=== PATIENT | male | born 1955 | race Caucasian/White ===

== ENCOUNTER 2018-03-11 07:46 | Inpatient (IN) ==
[2018-03-11] MEDS ORDERED: LORazepam 1 MG Tablet PO STA (08:14)
--- NOTE | 2018-03-11 08:19 | ED ---
HPI General Chief complaint: Neuro Symptoms/Deficit Stated complaint: Right Hand/Left Eye/Headache Complaint Time Seen by Provider: 03/11/18 08:01 History of Present Illness HPI narrative: 62 male history of anxiety here for evaluation of right hand numbness. Patient woke up this morning around 5:00 went to smoke a cigarette outside he noticed that his right hand is weak and could not fully grasp of the cigarette, he got anxious, almost an hour later the weakness gone away but he still have right hand numbness. He states that he had the same exact thing happened to him once last week when he was at work. 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 Denies hypertension or diabetes. Side Note: Patient has been having left eye complaints for the last 4 weeks including meng curtain that turned into seeing flashes of light, he states that he has been seeing an fuse cutter who did a proper eye exam and ruled out retinal detachment and other pathology and he is currently taking p.o. Medrol pack and steroids eyedrops. He also has been having headache/pain behind his left eye for the last 2 weeks on and off that has not changed by the patient current symptoms. Related Data Home Medications Medication Instructions Recorded Confirmed methylprednisolone 4 mg PO TID 03/11/18 03/11/18 prednisolone acetate 1 drp LEFT EYE Q6H 03/11/18 03/11/18 Allergies Allergy/AdvReac Type Severity Reaction Status Date / Time No Known Allergies Allergy Verified 03/11/18 07:58 Review of Systems ROS: all other systems reviewed are negative [facility] Medical History Medical History Patient denies medical problems (Acute) Surgical History Surgical History No history of previous surgery (Acute) Social History Social History Substance History: No History of Abuse Second Hand Smoke Exposure: No Smoking Status: Current every day smoker Tobacco Type: Cigarettes How Often Do You Have a Drink Containing Alcohol: 2 to 4 times a month Recent Travel in [facility] within the Last 8 Weeks: No Recent Out of Country Travel within the Last 8 Weeks: No Immunization History Tetanus Immunization: >5 Years Exam Narrative Exam Narrative: GENERAL: Alert oriented x3 no acute distress. SKIN: Focused skin assessment warm/dry. HEAD: Atraumatic. Normocephalic. EYES: Pupils equal and round. No scleral icterus. No injection or drainage. ENT: No nasal bleeding or discharge. Mucous membranes pink and moist. NECK: Trachea midline. No JVD. CARDIOVASCULAR: Regular rate and rhythm. No murmur appreciated. RESPIRATORY: No accessory muscle use. Clear to auscultation. Breath sounds equal bilaterally. GASTROINTESTINAL: Abdomen soft, non-tender, nondistended. Hepatic and splenic margins not palpable. MUSCULOSKELETAL: No obvious deformities. No clubbing. No cyanosis. No edema. NEUROLOGICAL: Awake and alert. No obvious cranial nerve deficits. Motor grossly within normal limits. Normal speech. PSYCHIATRIC: Appropriate mood and affect; insight and judgment normal. Course Initial Documented Vital Signs Temperature 97.4 F L 03/11/18 07:55 Pulse Rate 73 03/11/18 07:55 Respiratory Rate 20 03/11/18 07:55 Blood Pressure 143/83 H 03/11/18 07:55 Pulse Oximetry 100 03/11/18 07:55 Last Documented Vital Signs Temperature 97.4 F L 03/11/18 07:55 Pulse Rate 70 03/11/18 09:15 Respiratory Rate 17 03/11/18 09:15 Blood Pressure 144/91 H 03/11/18 09:15 Pulse Oximetry 98 03/11/18 09:15 NIH Stroke Scale NIHSS Time Completed NIHSS Time Completed: 08:09 NIH Stroke Scale Level of Consciousness: 0-Alert Orientation Questions: 0-Answers both correct Responds to Commands: 0-Both tasks correct Gaze Eye Movement: 0-Horizontal movement WNL Visual Chaudhari: 0-No visual field defect Facial Movement: 0-Normal Motor Functions Arm LEFT: 0-No drift Motor Functions Arm RIGHT: 0-No drift Motor Functions Leg LEFT: 0-No drift Motor Functions Leg RIGHT: 0-No drift Limb Ataxia: 0-No ataxia Sensory Loss: 0-No sensory loss Best Language: 0-Normal Articulation: 0-Normal Extinction or Inattention Sensory: 0-Absent Total: 0 Medical Decision Making MDM Narrative Medical decision making narrative: 62 male here for right hand numbness but no weakness. Symptoms happened about a week ago they got better and then occurred again today, CT showed an area of low density in the left parietal lobe that was followed by MRI of the brain that showed subacute strokes in the left hemisphere. Labs are reasonably within normal limit, vitals are stable except for mildly elevated blood pressure. EKG no A.fib, NSR. Patient will need to be admitted for further evaluation with possible carotid doppler and/or echo to r/ o embolic stroke. Medical Screen Exam Complete: Yes Emergency Medical Condition: Yes Lab Data Result diagrams: 03/11/18 08:00 03/11/18 08:00 Lab Results 03/11/18 03/11/18 03/11/18 Range/Units 08:00 08:00 08:00 WBC 6.2 (4.0-11.0) th/mm3 RBC 5.29 (4.50-5.90) mil/mm3 Hgb 16.6 (13.0-17.0) gm/dL Hct 49.8 (39.0-51.0) % MCV 94.2 (80.0-100.0) fL MCH 31.3 (27.0-34.0) pg MCHC 33.3 (32.0-36.0) % RDW 13.7 (11.6-17.2) % Plt Count 201 (150-450) th/mm3 MPV 8.3 (7.0-11.0) fL Neut % (Auto) 69.3 (16.0-70.0) % Lymph % (Auto) 18.9 (9.0-44.0) % Bladen % (Auto) 10.0 H (0.0-8.0) % Eos % (Auto) 1.1 (0.0-4.0) % Baso % (Auto) 0.7 (0.0-2.0) % Neut # (Auto) 4.3 (1.8-7.7) th/mm3 Lymph # (Auto) 1.2 (1.0-4.8) th/mm3 Bladen # (Auto) 0.6 (0.0-0.9) th/mm3 Eos # (Auto) 0.1 (0.0-0.4) th/mm3 Baso # (Auto) 0.0 (0.0-0.2) th/mm3 WBC Differential . Differential Comment Auto diff final PT 10.0 (9.8-11.6) sec INR 1.0 Ratio APTT 24.6 (24.3-30.1) sec Sodium 139 (136-145) meq/L Potassium 4.5 (3.5-5.1) meq/L Chloride 110 H (98-107) meq/L Carbon Dioxide 23.8 (21.0-32.0) meq/L Anion Gap 5 (5-15) meq/L BUN 20 H (7-18) mg/dL Creatinine 1.19 (0.60-1.30) mg/dL Estimated GFR 62 L (>89) mL/min Random Glucose 103 (74-106) mg/dL Calcium 8.7 (8.5-10.1) mg/dL Total Bilirubin 0.7 (0.2-1.0) mg/dL AST 13 L (15-37) U/L ALT 24 (12-78) U/L Alkaline Phosphatase 81 (45-117) U/L Total Creatine Kinase 119 (39-308) U/L CK-MB (CK-2) 2.9 (0.5-3.6) ng/mL Troponin I Less than 0.02 L (0.02-0.05) ng/mL Total Protein 7.5 (6.4-8.2) g/dL Albumin 4.1 (3.4-5.0) g/dL Imaging Data Radiologist's impression: Chest X-Ray 03/11/18 08:12 CONCLUSION: Negative examination. Head CT 03/11/18 08:12 CONCLUSION: 1. Area of abnormal density involving the left parietal lobe. Differential diagnostic considerations would include infarction versus mass. MRI of the brain with gadolinium is suggested to further assess . Head MRI 03/11/18 08:49 CONCLUSION: Patchy evolving subacute strokes in the left hemisphere as described. Discharge Plan Physicians Team ED Provider: Melvin Pisano Primary Care Provider: UNKNOWN, Rxs /Orders / Referrals /Forms Prescriptions: No Action methylprednisolone 4 mg Tablet 4 mg PO TID RF: 0 prednisolone acetate 1 % Drops,Suspension 1 drp LEFT EYE Q6H RF: 0 Status ED Status: With Doctor
--- NOTE | 2018-03-11 08:41 | CT ---
EXAM DATE: 03/11/2018 8:26 AM EDT AGE/SEX: 62 years / Male INDICATIONS: Numbness in right arm. Headache and vision changes for four weeks. CLINICAL DATA: This is the patient's initial encounter. Patient reports that signs and symptoms have been present for 1 month and indicates a pain score of 5/10. MEDICAL/SURGICAL HISTORY: None. None. RADIATION DOSE: 37.81 CTDI (mGy) COMPARISON: No prior exams available for comparison. TECHNIQUE: CT of the head without contrast. Using automated exposure control and adjustment of the mA and/or kV according to patient size, radiation dose was kept as low as reasonably achievable to ob tain optimal diagnostic quality images. DICOM format image data is available electronically for revi ew and comparison. FINDINGS: Cerebrum: There is a vague area of decreased density measuring 1.5 cm in diameter involving the left parietal lobe. This involves the cortex and underlying cortical white matter. It is fairly smoothly marginated. The ventricles are normal for age. No evidence of midline shift or hemorrhage . No extr aaxial fluid collections are seen. Posterior Fossa: The cerebellum and brainstem are intact. The 4th ventricle is midline. The cerebe llopontine angle is unremarkable. Extracranial: The visualized portion of the orbits is intact. Skull: The calvaria is intact. No evidence of skull fracture. CONCLUSION: 1. Area of abnormal density involving the left parietal lobe. Differential diagnostic considerati ons would include infarction versus mass. MRI of the brain with gadolinium is suggested to further as sess . Electronically signed by: Lul Ceja MD 03/11/2018 8:40 AM EDT
--- NOTE | 2018-03-11 08:42 | XR ---
EXAM DATE: 03/11/2018 8:12 AM EDT AGE/SEX: 62 years / Male INDICATIONS: Headache and neurological symptoms, patient states no chest complaints. CLINICAL DATA: This is the patient's initial encounter. Patient reports that signs and symptoms have been present for 1 day and indicates a pain score of Nonresponsive. MEDICAL/SURGICAL HISTORY: None. None. COMPARISON: No prior exams available for comparison. FINDINGS: 2 portable frontal views of the chest demonstrate the lungs to be symmetrically aerated without evide nce of mass, infiltrate or effusion. The cardiomediastinal contours are unremarkable. Osseous struc tures are intact. CONCLUSION: Negative examination. Electronically signed by: Lul Ceja MD 03/11/2018 8:41 AM EDT
[2018-03-11 09:07] LABS: Baso % (Auto) 0.7 % (0.0-2.0); Eos # (Auto) 0.1 th/mm3 (0.0-0.4); Eos % (Auto) 1.1 % (0.0-4.0); Hematocrit 49.8 % (39.0-51.0); Hemoglobin 16.6 gm/dL (13.0-17.0); Lymph # (Auto) 1.2 th/mm3 (1.0-4.8); Lymph % (Auto) 18.9 % (9.0-44.0); Mean Corpuscular HGB Conc 33.3 % (32.0-36.0); Mean Corpuscular Hemoglobin 31.3 pg (27.0-34.0); Mean Corpuscular Volume 94.2 fL (80.0-100.0); Mean Platelet Volume 8.3 fL (7.0-11.0); Mono # (Auto) 0.6 th/mm3 (0.0-0.9); Neut # (Auto) 4.3 th/mm3 (1.8-7.7); Neut % (Auto) 69.3 % (16.0-70.0); Platelet Count 201 th/mm3 (150-450); Red Blood Count 5.29 mil/mm3 (4.50-5.90); Red Cell Distribution Width 13.7 % (11.6-17.2); White Blood Count 6.2 th/mm3 (4.0-11.0)
[2018-03-11 09:15] LABS: Activated Partial Thrombo Time 24.6 sec (24.3-30.1)
[2018-03-11 09:24] LABS: Albumin 4.1 g/dL (3.4-5.0); Anion Gap 5 meq/L (5-15); Aspartate Aminotransferase 13 U/L (15-37); Blood Urea Nitrogen 20 mg/dL (7-18); Calcium 8.7 mg/dL (8.5-10.1); Carbon Dioxide 23.8 meq/L (21.0-32.0); Chloride 110 meq/L (98-107); Glomerular Filtration Rate 62 mL/min (>89); Glucose,Random 103 mg/dL (74-106); Potassium 4.5 meq/L (3.5-5.1); Sodium 139 meq/L (136-145)
[2018-03-11 09:26] LABS: Alanine Aminotransferase 24 U/L (12-78)
[2018-03-11 09:29] LABS: Alkaline Phosphatase 81 U/L (45-117); Creatine Kinase 119 U/L (39-308); Total Protein 7.5 g/dL (6.4-8.2)
[2018-03-11 09:41] LABS: Creatine Kinase MB 2.9 ng/mL (0.5-3.6)
[2018-03-11] MEDS ORDERED: Gadobutrol PF 7.5 MMOL/7.5 ML Vial (for RAD) IV.SIG ONE (10:17)
--- NOTE | 2018-03-11 10:27 | MR ---
EXAM DATE: 03/11/2018 9:58 AM EDT AGE/SEX: 62 years / Male INDICATIONS: . Abnormal CT with right arm weakness and cephalgia. CLINICAL DATA: This is the patient's initial encounter. Patient reports that signs and symptoms have been present for 3 weeks and indicates a pain score of 3/10. MEDICAL/SURGICAL HISTORY: None. . lip surgery COMPARISON: [facility] [place]/O CONTRAST, 03/11/2018. . TECHNIQUE: Multiplanar, multisequence examination of the brain was performed without and with 7 ml Ga davist (gadobutrol) contrast as a single exam dose. FINDINGS: Examination reveals a small focus of restricted diffusion in the low convexity left parietal occipita l cortex with scattered punctate areas of focally restricted diffusion elsewhere in the left hemisphe re, mid and high convexity frontal and parietal regions, these areas consistent with subacute strokes . There are no similar abnormalities in the contralateral right hemisphere. The posterior fossa and b rainstem structures are nonacute in appearance. There is no evidence of intracranial mass or hemorrha ge. There is mild T2 prolongation correlating with the above-described areas. Elsewhere, no suspiciou s abnormal parenchymal signal. Ventricles are symmetric and normal. CONCLUSION: Patchy evolving subacute strokes in the left hemisphere as described. Electronically signed by: Abran Edwards MD 03/11/2018 10:26 AM EDT
[2018-03-11] MEDS ORDERED: Bisacodyl 10 MG Supp RECTAL PRN (12:23)
--- NOTE | 2018-03-11 12:35 | P.HPIM ---
History of Present Illness Service: [facility] Primary Care Physician: UNKNOWN Chief Complaint: r hand numbness History of Present Illness: This is a 62 y/o CM with PMHx Anxiety here for evaluation of right hand numbness that began at 5AM today. Symptoms were associated with weakness,, and patient reports having a similar episode that occurred at work last week that lasted a few minutes and completely resolved spontaneously. Patient is a smoker , he admits that he does not see a PCP regularly, but does deny previous history of diabetes and hypertension. No previous history of CVA, OH or CAD. Of note, patient intermittent left eye blurriness s/p echo vascular tech evaluation last wk who ruled out retinal detachment and other pathologies, patient was Rx Medrol pack and steroids eyedrops. - Diagnosis (1) Acute ischemic left MCA stroke (2) Tobacco use (3) ESTELA (acute kidney injury) (4) HTN (hypertension) Review of Systems All other systems reviewed negative except as stated in HPI PMFSH - History History Provided By: Patient - Medical History Medical History: Medical History (Last Updated 03/11/18 @ 13:23 by Safia Chaudhary MD) Anxiety Patient denies medical problems - Surgical History Surgical History: Surgical History (Last Reviewed 03/11/18 @ 13:23 by Safia Chaudhary MD) No history of previous surgery - Family History Family History: Family History (Last Updated 03/11/18 @ 13:24 by Safia Chaudhary MD) Other Family history normal - Social History I have reviewed the patient's Social History: Yes - Tobacco History Second Hand Smoke Exposure: Yes Tobacco Use In Past 30 Days: Yes Smoking Status: Current every day smoker Tobacco Type: Cigarettes Packs Per Day: 1 - Alcohol History How Often Do You Have a Drink Containing Alcohol: 2 to 4 times a month - Substance Use History Substance History: No History of Abuse - Travel History Recent Travel in the [place] Within the Last 8 Weeks: No Recent Travel Out of the Country Within the Last 8 Weeks: No - Immunization History Tetanus Immunization: >5 Years Medications and Allergies Allergies Allergy/AdvReac Type Severity Reaction Status Date / Time No Known Allergies Allergy Verified 03/11/18 07:58 Home Medications Medication Instructions Recorded Confirmed Type methylprednisolone 4 mg PO TID 03/11/18 03/11/18 History prednisolone acetate 1 drp LEFT EYE Q6H 10/19/18 10/19/18 History Exam Vital signs: Vital Signs 03/11/18 07:55 03/11/18 08:07 03/11/18 08:20 Temperature 97.4 F L Pulse Rate 73 73 62 Respiratory Rate 20 20 Blood Pressure 143/83 H 150/89 H Pulse Oximetry 100 100 03/11/18 09:15 Temperature Pulse Rate 70 Respiratory Rate 17 Blood Pressure 144/91 H Pulse Oximetry 98 Intake & Output 03/10/18 03/11/18 03/11/18 18:59 06:59 18:59 Weight 62.596 kg Narrative: GENERAL: Thin male, in no acute distress, lying comfortably in bed SKIN: Warm and dry. HEENT: Normocephalic. No scleral icterus. No injection or drainage. PERRLA, MOM. NECK: Supple, trachea midline. No JVD or lymphadenopathy. CARDIOVASCULAR: Regular rate and rhythm without murmurs, gallops, or rubs. RESPIRATORY: Breath sounds equal bilaterally. No accessory muscle use. GASTROINTESTINAL: Abdomen soft, non-tender, nondistended. MUSCULOSKELETAL: No cyanosis, or edema. BACK: Nontender without obvious deformity. No CVA tenderness. NEURO/PSYCH: AAOX3, RUE 4/5, all other extremities 5/5, clear speech, pleasant, CN 2-12 intact. Results - Labs CBC & Chem 7: 03/11/18 08:00 03/11/18 08:00 Labs: Short CBC 03/11/18 Range/Units 08:00 WBC 6.2 (4.0-11.0) th/mm3 Hgb 16.6 (13.0-17.0) gm/dL Hct 49.8 (39.0-51.0) % Plt Count 201 (150-450) th/mm3 BMP 03/11/18 08:00 Sodium 139 Potassium 4.5 Chloride 110 H Carbon Dioxide 23.8 BUN 20 H Creatinine 1.19 Calcium 8.7 Cardiac Enzymes 03/11/18 Range/Units 08:00 Total Creatine Kinase 119 (39-308) U/L CK-MB (CK-2) 2.9 (0.5-3.6) ng/mL Troponin I Less than 0.02 L (0.02-0.05) ng/mL Liver Function 03/11/18 Range/Units 08:00 Total Bilirubin 0.7 (0.2-1.0) mg/dL AST 13 L (15-37) U/L ALT 24 (12-78) U/L Alkaline Phosphatase 81 (45-117) U/L Albumin 4.1 (3.4-5.0) g/dL - Imaging Impressions Chest X-Ray 03/11/18 08:12 CONCLUSION: Negative examination. Head CT 03/11/18 08:12 CONCLUSION: 1. Area of abnormal density involving the left parietal lobe. Differential diagnostic considerations would include infarction versus mass. MRI of the brain with gadolinium is suggested to further assess . Head MRI 03/11/18 08:49 CONCLUSION: Patchy evolving subacute strokes in the left hemisphere as described. Caprini VTE Risk Assessment Caprini VTE Risk Assessment: No/Low Risk (score <= 1) Caprini Risk Assessment Model: Point Value = 1 Point Value = 2 Point Value = 3 Point Value = 5 Age 41-60 Minor surgery BMI > 25 kg/m2 Swollen legs Varicose veins or History of unexplained or recurrent spontaneous Oral contraceptives or hormone replacement Sepsis (< 1 month) Serious lung disease, including pneumonia (< 1 month) Abnormal pulmonary function Acute myocardial infarction Congestive heart failure (< 1 month) History of inflammatory bowel disease Medical patient at bed rest Age 61-74 Arthroscopic surgery Major open surgery (> 45 min) Laparoscopic surgery (> 45 min) Malignancy Confined to bed (> 72 hours) Immobilizing plaster cast Central venous access Age >= 75 History of VTE Family history of VTE Factor V Leiden Prothrombin [id number] Lupus anticoagulant Anticardiolipin antibodies Elevated serum homocysteine Heparin-induced thrombocytopenia Other congenital or acquired thrombophilia Stroke (< 1 month) Elective arthroplasty Hip, pelvis, or leg fracture Acute spinal cord injury (< 1 month) Prophylaxis Regimen: Total Risk Factor Score Risk Level Prophylaxis Regimen 0-1 Low Early ambulation 2 Moderate Order ONE of the following: *Sequential Compression Device (SCD) *Heparin 5000 units SQ BID 3-4 Higher Order ONE of the following medications: *Heparin 5000 units SQ TID *Enoxaparin/Lovenox 40 mg SQ daily (WT < 150 kg, CrCl > 30 mL/min) *Enoxaparin/Lovenox 30 mg SQ daily (WT < 150 kg, CrCl > 10-29 mL/min) *Enoxaparin/Lovenox 30 mg SQ BID (WT < 150 kg, CrCl > 30 mL/min) AND/OR *Sequential Compression Device (SCD) 5 or more Highest Order ONE of the following medications: *Heparin 5000 units SQ TID (Preferred with Epidurals) *Enoxaparin/Lovenox 40 mg SQ daily (WT < 150 kg, CrCl > 30 mL/min) *Enoxaparin/Lovenox 30 mg SQ daily (WT < 150 kg, CrCl > 10-29 mL/min) *Enoxaparin/Lovenox 30 mg SQ BID (WT < 150 kg, CrCl > 30 mL/min) AND *Sequential Compression Device (SCD) Assessment and Plan - Assessment (1) Acute ischemic left MCA stroke Code(s): I63.512 - Cerebral infarction due to unspecified occlusion or stenosis of left middle cerebral artery Status: Acute (2) Tobacco use Code(s): Z72.0 - Tobacco use Status: Chronic (3) ESTELA (acute kidney injury) Code(s): N17.9 - Acute kidney failure, unspecified Status: Acute (4) HTN (hypertension) Code(s): I10 - Essential (primary) hypertension Status: Acute - Plan This is a 62 y/o CM with PMHx Anxiety here for evaluation of right hand numbness that began at 5AM today. Per CT Head and MRI found to have patchy evolving subacute strokes in the left hemisphere, neurology has been consulted, hospital day #1 1. CVA/TIA, subacute strokes in the left hemisphere Admit to Telemetry Started on ASA and statin Will get Carotids and Echo Neurology consult placed, appreciate assistance with mgmt Allow permissive hypertension, not on meds at this time for hypertension Will check Lipid panel PT/OT/Speech consulted MRI HEAD: Patchy evolving subacute strokes in the left hemisphere as described. CT HEAD: Area of abnormal density involving the left parietal lobe. Differential diagnostic considerations would include infarction versus mass. MRI of the brain with gadolinium is suggested to further assess 2. Smoker Encourage cessation, risks discussed 3. HTN No previous history per patient Will allow permissive hypertension due to recent CVA Continue to monitor Not on PRN meds 4. Acute Kidney Injury BUN 20, Creatinine 1.19 Continue IV fluids Follow-up BMP in AM Avoid nephrotoxic meds 5. Anxiety Not on meds 6. DVT prophylaxis SCD's 7. Health Maintenance Will check lipids, hemoglobin A1c, and TSH 8. Dispo: Follow-up neurology recommendations as well as carotid and echo results Code Status: full Discussed Condition With: patient, RN
--- NOTE | 2018-03-11 13:02 | P.CONNEU ---
History of Present Illness Service: Neurology Primary Care Provider: UNKNOWN Chief Complaint: Stroke History of Present Illness: 62-year-old male admitted for stroke evaluation. Onset over the past couple weeks. Is been having double vision, left amaurosis fugax, dystaxia of his right upper extremity moments where he is unable to use his right arm or can control it. He smokes close to a pack a day's been doing it for decades. Does not take any medications. He is from [place] came here for further evaluation. Not IV TPA candidate due to the chronicity of his symptoms. Review of Systems All other systems reviewed negative except as stated in [facility] - History History Provided By: Patient - Medical History Medical History: Medical History (Last Reviewed 03/11/18 @ 12:53 by Juan Diego Driscoll) Patient denies medical problems - Surgical History Surgical History: Surgical History (Last Reviewed 03/11/18 @ 12:53 by Juan Diego Driscoll) No history of previous surgery - Tobacco History Second Hand Smoke Exposure: No Tobacco Use In Past 30 Days: Yes Smoking Status: Current every day smoker Tobacco Type: Cigarettes - Alcohol History How Often Do You Have a Drink Containing Alcohol: 2 to 4 times a month - Substance Use History Substance History: No History of Abuse - Travel History Recent Travel in the [place] Within the Last 8 Weeks: No Recent Travel Out of the Country Within the Last 8 Weeks: No - Immunization History Tetanus Immunization: >5 Years Medications and Allergies Active Medications: Active Medications Acetaminophen (Tylenol) 650 mg PO Q4H PRN PRN Reason: Temp > 100.4 Al Hydroxide/Mg Hydroxide (Milk Of Magnesia Liq) 30 ml PO Q12H PRN PRN Reason: Mild Constipation Bisacodyl (Dulcolax Supp) 10 mg RECTAL DAILY PRN PRN Reason: SEVERE CONSITIPATION Sodium Chloride (Ns Inj) 1,000 mls @ 125 mls/hr IV.CONT .Q8H EMILEE Lactulose (Lactulose Liq) 30 ml PO DAILY PRN PRN Reason: SEVERE CONSITIPATION Ondansetron HCl (Zofran Inj) 4 mg IV.PUSH Q6H PRN PRN Reason: NAUSEA OR VOMITING Pravastatin Sodium (Pravachol) 20 mg PO DAILY EMILEE Prednisolone Acetate (Pred Forte 1% Opth Susp) drop LEFT EYE Q6H EMILEE Senna/Docusate Sodium (Chasity-Colace) 1 tab PO BID EMILEE Sennosides (Senokot) 17.2 mg PO Q12H PRN PRN Reason: Moderate Constipation Allergies Allergy/AdvReac Type Severity Reaction Status Date / Time No Known Allergies Allergy Verified 03/11/18 07:58 Home Medications Medication Instructions Recorded Confirmed Type methylprednisolone 4 mg PO TID 03/11/18 03/11/18 History prednisolone acetate 1 drp LEFT EYE Q6H 03/11/18 03/11/18 History Exam Vital signs: Vital Signs 03/11/18 07:55 03/11/18 08:07 03/11/18 08:20 Temperature 97.4 F L Pulse Rate 73 73 62 Respiratory Rate 20 20 Blood Pressure 143/83 H 150/89 H Pulse Oximetry 100 100 03/11/18 09:15 Temperature Pulse Rate 70 Respiratory Rate 17 Blood Pressure 144/91 H Pulse Oximetry 98 Intake & Output 03/10/18 03/11/18 03/11/18 18:59 06:59 18:59 Weight 62.596 kg Narrative: GENERAL: in NAD, SKIN: Warm and dry. HEAD: Atraumatic. Normocephalic. EYES: Pupils equal and round. No scleral icterus. ENT: No nasal bleeding or discharge. Mucous membranes pink and moist. NECK: Trachea midline. No JVD. CARDIOVASCULAR: Regular rate and rhythm. RESPIRATORY: No accessory muscle use. GASTROINTESTINAL: Abdomen soft, non-tender, nondistended. MUSCULOSKELETAL: Extremities without clubbing, cyanosis, or edema. No obvious deformities. NEUROLOGICAL: Awake and alert. Oriented x3, no aphasia, fluent articulate, reduced right nasolabial fold, OU 3-2mm, eomi, VFF, mild right upper extremity slight dystaxia, no drift, Motor grossly within normal limits. Five out of 5 muscle strength in the arms and legs. No neglect, gait not assessed secondary fall risk PSYCHIATRIC: Appropriate mood and affect; insight and judgment normal. - Constitutional no acute distress - Routine HEENT Exam Head: Present: normocephalic Eye: Present: EOMI Results - Labs CBC & Chem 7: 03/11/18 08:00 03/11/18 08:00 Labs: Laboratory Results - last 24 hr 03/11/18 03/11/18 03/11/18 08:00 08:00 08:00 WBC 6.2 RBC 5.29 Hgb 16.6 Hct 49.8 MCV 94.2 MCH 31.3 MCHC 33.3 RDW 13.7 Plt Count 201 MPV 8.3 Neut % (Auto) 69.3 Lymph % (Auto) 18.9 [place] % (Auto) 10.0 H Eos % (Auto) 1.1 Baso % (Auto) 0.7 Neut # (Auto) 4.3 Lymph # (Auto) 1.2 [place] # (Auto) 0.6 Eos # (Auto) 0.1 Baso # (Auto) 0.0 WBC Differential . Differential Comment Auto diff final PT 10.0 INR 1.0 APTT 24.6 Sodium 139 Potassium 4.5 Chloride 110 H Carbon Dioxide 23.8 Anion Gap 5 BUN 20 H Creatinine 1.19 Estimated GFR 62 L Random Glucose 103 Calcium 8.7 Total Bilirubin 0.7 AST 13 L ALT 24 Alkaline Phosphatase 81 Total Creatine Kinase 119 CK-MB (CK-2) 2.9 Troponin I Less than 0.02 L Total Protein 7.5 Albumin 4.1 - Imaging Impressions Chest X-Ray 03/11/18 08:12 CONCLUSION: Negative examination. Head CT 03/11/18 08:12 CONCLUSION: 1. Area of abnormal density involving the left parietal lobe. Differential diagnostic considerations would include infarction versus mass. MRI of the brain with gadolinium is suggested to further assess . Head MRI 03/11/18 08:49 CONCLUSION: Patchy evolving subacute strokes in the left hemisphere as described. Review/Management - Diagnosis (1) Acute ischemic left MCA stroke Code(s): I63.512 - Cerebral infarction due to unspecified occlusion or stenosis of left middle cerebral artery Status: Acute Current Visit: Yes (2) Tobacco use Code(s): Z72.0 - Tobacco use Status: Acute Current Visit: Yes - Review/Management Plan: MRI brain scan reviewed diffusion-weighted imaging studies positive. He has scattered left hemispheric strokes which would be suggestive of a proximal left MCA or left internal carotid artery stenosis/occlusion. With his history of amaurosis fugax I suspect he has symptomatic left carotid stenosis which may be secondary to chronic tobacco use Recommendation Follow-up MRI brain carotids Aspirin IV fluids Follow-up echo, fasting lipids The left carotid is stenotic, consult vascular surgery Behavioral modification and risk factor reduction. Tobacco cessation weight loss, blood pressure control, blood sugar control, lipid control. Exercise
[2018-03-11] MEDS ORDERED: Sodium Chloride 0.9% 2 ML Flush PRN IV.FLUSH (13:05)
[2018-03-11] MEDS: Aspirin 325 MG Tablet PO SCH (13:59)
[2018-03-11] MEDS: Sod Chloride 0.9% Inj 1,000 ML IV.CONT SCH ×2 (14:00→21:28)
[2018-03-11] MEDS: Heparin - SQ 10,000 UNITS/ML Vial SQ SCH (14:00)
[2018-03-11 14:05] LABS: Prothrombin Time 10.2 sec (9.8-11.6)
[2018-03-11 15:34] LABS: Bilirubin,Urine Negative (Negative); Clarity,Urine Hazy (Clear); Color,Urine Yellow (Yellw/Straw); Glucose,Urine (UA) Negative (Negative); Leukocyte Esterase,Urine Negative (Negative); Nitrite,Urine Negative (Negative); Specific Gravity,Urine 1.011 (1.002-1.035)
[2018-03-11 16:39] LABS: Hemoglobin A1c 5.9 % (4.3-6.0)
[2018-03-11] MEDS ORDERED: LORazepam 0.5 MG Tablet PO PRN (17:07)
--- NOTE | 2018-03-11 17:25 | MR ---
EXAM DATE: 03/11/2018 12:59 PM EDT AGE/SEX: 62 years / Male INDICATIONS: CVA. CLINICAL DATA: This is the patient's initial encounter. Patient reports that signs and symptoms have been present for 1 day and indicates a pain score of 0/10. MEDICAL/SURGICAL HISTORY: None. . Lip surgery. COM[place] [facility] [place] & W/O CONTRAST, 03/11/2018. [facility] [place] HEAD W/O CONTRAST, 03/11/2018. [facility] [place] MRA NECK W CONTRAST, 03/11/2018. . TECHNIQUE: 3D [id number] MRA was performed. Source images, multiplanar STS MIP, and 3D volum e MIP reconstructions were reviewed. FINDINGS: There is excellent visualization of the major intracranial arteries out to the second-order branch ve ssels. There is no evidence for aneurysm, vessel truncation or stenosis, and no evidence for vascula r malformation. Anterior and bilateral posterior communicating arteries are hypoplastic. CONCLUSION: 1. Negative MRA Cow ([place]) non contrast. Electronically signed by: Phillip Frias MD 03/11/2018 5:23 PM EDT
[2018-03-11] MEDS ORDERED: Gadobutrol PF 10 MMOL/10 ML Vial (for RAD) IV.SIG ONE (17:33)
--- NOTE | 2018-03-11 17:33 | ECHRPT ---
Indication: CVA /TIA CONCLUSIONS Wall thickness is normal. Normal left ventricular size. The left ventricular systolic function is borderline normal with an estimated ejection fraction of 5 0%. Trace mitral valve regurgitation. Mild thickening of the aortic valve leaflets. The estimated pulmonary arterial pressure is 19 mmHg. There is trace tricuspid valve regurgitation. Trivial pericardial effusion. BP: / HR: Rhythm: MEASUREMENTS (Male / Female) Normal Values Technical Quality: 2D ECHO LV Diastolic Diameter PLAX 4.5 cm 4.2 - 5.9 / 3.9 - 5.3 cm LV Systolic Diameter PLAX 3.8 cm IVS Diastolic Thickness 0.7 cm 0.6 - 1.0 / 0.6 - 0.9 cm LVPW Diastolic Thickness 0.7 cm 0.6 - 1.0 / 0.6 - 0.9 cm LV Relative Wall Thickness 0.3 RV Internal Dim ED PLAX 1.7 cm LVOT Diameter 2.1 cm LV Ejection Fraction MOD 4C 41.1 % LV Ejection Fraction 4C AL 42.9 % M-MODE Aortic Root Diameter MM 3.9 cm LA Systolic Diameter MM 3.4 cm LA Ao Ratio MM 0.9 AV Cusp Separation MM 2.3 cm DOPPLER AV Peak Velocity 92.3 cm/s AV Peak Gradient 3.4 mmHg LVOT Peak Velocity 63.7 cm/s LVOT Peak Gradient 1.6 mmHg AV Area Cont Eq pk 2.4 cm Mitral E Point Velocity 50.3 cm/s Mitral A Point Velocity 42.0 cm/s Mitral E to A Ratio 1.2 LV E' Lateral Velocity 11.3 cm/s Mitral E to LV E' Lateral Ratio 4.5 LV E' Septal Velocity 8.6 cm/s Mitral E to LV E' Septal Ratio 5.9 TR Peak Velocity 153.0 cm/s TR Peak Gradient 9.4 mmHg Right Atrial Pressure 10.0 mmHg Pulmonary Artery Systolic Pressu 19.4 mmHg Right Ventricular Systolic Press 19.4 mmHg PV Peak Velocity 78.5 cm/s PV Peak Gradient 2.5 mmHg FINDINGS LEFT VENTRICLE Wall thickness is normal. Normal left ventricular size. The left ventricular systolic function is borderline normal with an estimated ejection fraction of 5 0%. RIGHT VENTRICLE Normal right ventricular size and systolic function. LEFT ATRIUM The left atrial size is normal. RIGHT ATRIUM The right atrial size is normal. ATRIAL SEPTUM Normal atrial septal thickness without atrial level shunting by limited color doppler interrogation. AORTA The aortic root and proximal ascending aorta are normal in size on limited imaging. MITRAL VALVE Trace mitral valve regurgitation. AORTIC VALVE Mild thickening of the aortic valve leaflets. TRICUSPID VALVE The estimated pulmonary arterial pressure is 19 mmHg. There is trace tricuspid valve regurgitation. PULMONARY VALVE The pulmonary valve is not well visualized. VESSELS The inferior vena cava is normal in size. PERICARDIUM Trivial pericardial effusion. OTHER FINDINGS Aortic Root measures 3.9 cms. Fani De La Rosa MD, FACC (Electronically Signed) Final Date:11 March 2018 17:32
--- NOTE | 2018-03-11 17:33 | MR ---
EXAM DATE: 03/11/2018 12:41 PM EDT AGE/SEX: 62 years / Male INDICATIONS: Stenosis. CLINICAL DATA: This is the patient's initial encounter. Patient reports that signs and symptoms have been present for 1 day and indicates a pain score of 0/10. MEDICAL/SURGICAL HISTORY: None. . Lip surgery. COMPARISON: . TECHNIQUE: 10 ml Gadavist (gadobutrol) contrast infused MRA (single exam dose) of the extracranial circulation was performed using a neurovascular coil. Postprocessing was performed, including rotati ng sub-volume maximum intensity projections of each carotid artery, rotating full-volume maximum inte nsity projections of both carotid arteries, sagittal and coronal sliding thin-slab reformations of ea ch carotid artery, and left oblique sliding thin-slab reformation through the aortic arch to include the origin of the arch branch vessels. FINDINGS: Aortic Arch : There is a three-vessel origin of the great vessels from the aorta. No evidence of o stial narrowing. Right Carotid : The common carotid artery is intact. The carotid bulb demonstrates mild atheroscler osis distal bulb with no evidence for hemodynamically significant stenosis. The internal carotid mindy ry lumen is smooth without stenosis. The external carotid artery is intact. Left Carotid : The common carotid artery is intact. There is focal severe stenosis of the carotid bu lb extending over 3 mm. This is felt to be hemodynamically significant, on the order of 80-85% by AXEL CET criteria. The external carotid artery is intact. Vertebrals : The vertebral arteries have a symmetric diameter. No stenotic lesions are seen. CONCLUSION: 1. Hemodynamically significant stenosis at the left proximal internal carotid artery. 2. No evidence for hemodynamically significant stenosis on the right. Percent stenosis is calculated using the diameter of the stenotic region over the diameter of the nor mal distal internal carotid artery Electronically signed by: Phillip Frias MD 03/11/2018 5:31 PM EDT
--- NOTE | 2018-03-11 18:11 | ECG ---
Date Performed: 03/11/2018 Time Performed: 11:13:36 PTAGE: 62 years EKG: Sinus rhythm WITH SHORT MI INTERVAL BORDERLINE ECG NO PREVIOUS TRACING DOCTOR: Osiel Kurtz Interpretating Date/Time 03/11/2018 18:09:32
[2018-03-11 18:22] LABS: Chol/HDL Ratio 2.9 Ratio; HDL Cholesterol 65.1 mg/dL (40.0-60.0)
[2018-03-11] MEDS: prednisoLONE Acetate 1% Opth Susp 5 ML Bottle LEFT EYE SCH ×2 (19:26→21:25)
[2018-03-11] MEDS: Senna/Docusate Sodium 8.6/50 MG Tablet PO SCH (21:24)
[2018-03-11] MEDS: Sodium Chloride 0.9% 2 ML Flush BID IV.FLUSH SCH (21:24)
[2018-03-12] MEDS: Heparin - SQ 10,000 UNITS/ML Vial SQ SCH ×2 (03:42→14:05)
[2018-03-12] MEDS: prednisoLONE Acetate 1% Opth Susp 5 ML Bottle LEFT EYE SCH ×4 (03:42→21:05)
[2018-03-12] MEDS: Sod Chloride 0.9% Inj 1,000 ML IV.CONT SCH ×3 (05:22→21:34)
[2018-03-12] MEDS: Sodium Chloride 0.9% 2 ML Flush BID IV.FLUSH SCH ×2 (08:26→21:04)
[2018-03-12] MEDS: Senna/Docusate Sodium 8.6/50 MG Tablet PO SCH ×2 (08:28→21:03)
[2018-03-12] MEDS: Aspirin 325 MG Tablet PO SCH (08:29)
[2018-03-12 08:49] LABS: Baso % (Auto) 0.6 % (0.0-2.0); Eos # (Auto) 0.1 th/mm3 (0.0-0.4); Eos % (Auto) 2.3 % (0.0-4.0); Hematocrit 43.8 % (39.0-51.0); Hemoglobin 14.8 gm/dL (13.0-17.0); Lymph # (Auto) 1.6 th/mm3 (1.0-4.8); Lymph % (Auto) 33.5 % (9.0-44.0); Mean Corpuscular HGB Conc 33.8 % (32.0-36.0); Mean Corpuscular Hemoglobin 31.8 pg (27.0-34.0); Mean Platelet Volume 8.6 fL (7.0-11.0); Mono # (Auto) 0.4 th/mm3 (0.0-0.9); Mono % (Auto) 8.7 % (0.0-8.0); Neut # (Auto) 2.7 th/mm3 (1.8-7.7); Neut % (Auto) 54.9 % (16.0-70.0); Platelet Count 164 th/mm3 (150-450); Red Blood Count 4.66 mil/mm3 (4.50-5.90); Red Cell Distribution Width 13.6 % (11.6-17.2); White Blood Count 4.9 th/mm3 (4.0-11.0)
[2018-03-12] MEDS ORDERED: Acetaminophen 325 MG Tablet PO ONE (08:58)
--- NOTE | 2018-03-12 08:59 | P.PN ---
Subjective Interval history: Follow-up for acute left MCA territory CVA and severe left carotid stenosis. Patient reports continued mild blurred vision, worse in the left eye. He states he occasionally has some paresthesias of his right hand, denies any weakness. He also reports a mild headache at the left frontotemporal region. He denies any other medical complaints including no lightheadedness, dizziness, speech deficit, chest pain, palpitations, shortness of breath, or abdominal complaints. Had long discussion with the patient and his at bedside, all questions answered. Physical Exam Vital signs: Vital Signs 03/11/18 09:15 03/11/18 14:00 03/11/18 15:52 Temperature 97.4 F L Pulse Rate 70 64 61 Respiratory Rate 17 17 18 Blood Pressure 144/91 H 133/70 135/72 Pulse Oximetry 98 98 99 03/11/18 19:52 03/11/18 20:04 03/12/18 00:00 Temperature 98.1 F 98.1 F 97.5 F L Pulse Rate 73 81 71 Respiratory Rate 19 19 20 Blood Pressure 111/68 142/79 H 109/65 Pulse Oximetry 95 98 98 03/12/18 04:00 03/12/18 08:00 Temperature 97.5 F L 97.8 F Pulse Rate 68 61 Respiratory Rate 20 16 Blood Pressure 126/74 129/78 Pulse Oximetry 95 100 Intake & Output 03/11/18 03/12/18 03/12/18 18:59 06:59 18:59 Intake Total 1999 Output Total 900 / 900 Balance 1100 / 1100 Weight 62.596 kg 62.5 kg Intake: IV 1999 NS Inj 1,000 ML @ 125 mls/hr IV 1999 .CONT .Q8H [facility] Rx#:[id number] Output: Urine 900 / 900 Other: Date of Last Bowel Movement 03/11/18 03/11/18 Weight On Admission 62.596 kg Narrative: GENERAL: Well-nourished, well-developed pleasant middle-aged male patient in [facility]. SKIN: Warm and dry. No rash. HEENT: Normocephalic. Atraumatic. Pupils equal and round. EOMI. No visual field deficit. Mucous membranes pink and moist. NECK: Supple. Trachea midline. CARDIOVASCULAR: Regular rate and rhythm. No murmur appreciated. RESPIRATORY: No accessory muscle use. Clear to auscultation. Breath sounds equal bilaterally. GASTROINTESTINAL: Abdomen soft, non-tender, nondistended. Normoactive bowel sounds x4. MUSCULOSKELETAL: No obvious deformities. Extremities without clubbing, cyanosis , or edema. NEUROLOGICAL: Awake and alert. No obvious cranial nerve deficits. 5/5 strength bilateral upper and lower extremities. Normal speech. No pronator drift. No facial droop, lid lag, or tongue deviation. PSYCHIATRIC: Appropriate mood and affect; insight and judgment normal. Results - Labs CBC & Chem 7: 03/12/18 06:15 03/12/18 06:15 Laboratory Results - last 24 hr 03/11/18 03/11/18 03/11/18 08:00 08:00 08:00 WBC 6.2 RBC 5.29 Hgb 16.6 Hct 49.8 MCV 94.2 MCH 31.3 MCHC 33.3 RDW 13.7 Plt Count 201 MPV 8.3 Neut % (Auto) 69.3 Lymph % (Auto) 18.9 [place] % (Auto) 10.0 H Eos % (Auto) 1.1 Baso % (Auto) 0.7 Neut # (Auto) 4.3 Lymph # (Auto) 1.2 [place] # (Auto) 0.6 Eos # (Auto) 0.1 Baso # (Auto) 0.0 WBC Differential . Differential Comment Auto diff final PT 10.0 INR 1.0 APTT 24.6 Sodium 139 Potassium 4.5 Chloride 110 H Carbon Dioxide 23.8 Anion Gap 5 BUN 20 H Creatinine 1.19 Estimated GFR 62 L Random Glucose 103 Hemoglobin A1c Calcium 8.7 Total Bilirubin 0.7 AST 13 L ALT 24 Alkaline Phosphatase 81 Total Creatine Kinase 119 CK-MB (CK-2) 2.9 Troponin I Less than 0.02 L Total Protein 7.5 Albumin 4.1 Triglycerides Cholesterol LDL Cholesterol, Calc HDL Cholesterol Cholesterol/HDL Ratio TSH Urine Color Urine Clarity Urine pH Ur Specific [place] Urine Protein Urine Glucose (UA) Urine Ketones Urine Occult Blood Urine Nitrate Urine Bilirubin Urine Urobilinogen Ur Leukocyte Esterase Urine RBC Urine WBC Micro UA Comment Ur Microscopic Review Urine Culture Comments 03/11/18 03/11/18 03/11/18 08:00 08:00 08:00 WBC RBC Hgb Hct MCV MCH MCHC RDW Plt Count MPV Neut % (Auto) Lymph % (Auto) [place] % (Auto) Eos % (Auto) Baso % (Auto) Neut # (Auto) Lymph # (Auto) [place] # (Auto) Eos # (Auto) Baso # (Auto) WBC Differential Differential Comment PT INR APTT Sodium Potassium Chloride Carbon Dioxide Anion Gap BUN Creatinine Estimated GFR Random Glucose Hemoglobin A1c 5.9 Calcium Total Bilirubin AST ALT Alkaline Phosphatase Total Creatine Kinase CK-MB (CK-2) Troponin I Total Protein Albumin Triglycerides 63 Cholesterol 189 LDL Cholesterol, Calc 111 H HDL Cholesterol 65.1 H Cholesterol/HDL Ratio 2.90 TSH 1.790 Urine Color Urine Clarity Urine pH Ur Specific [place] Urine Protein Urine Glucose (UA) Urine Ketones Urine Occult Blood Urine Nitrate Urine Bilirubin Urine Urobilinogen Ur Leukocyte Esterase Urine RBC Urine WBC Micro UA Comment Ur Microscopic Review Urine Culture Comments 03/11/18 03/11/18 03/11/18 13:35 13:35 15:17 WBC RBC Hgb Hct MCV MCH MCHC RDW Plt Count MPV Neut % (Auto) Lymph % (Auto) [place] % (Auto) Eos % (Auto) Baso % (Auto) Neut # (Auto) Lymph # (Auto) [place] # (Auto) Eos # (Auto) Baso # (Auto) WBC Differential Differential Comment PT 10.2 INR 1.0 APTT 24.0 L Sodium Potassium Chloride Carbon Dioxide Anion Gap BUN Creatinine Estimated GFR Random Glucose Hemoglobin A1c Calcium Total Bilirubin AST ALT Alkaline Phosphatase Total Creatine Kinase CK-MB (CK-2) Troponin I Less than 0.02 L Total Protein Albumin Triglycerides Cholesterol LDL Cholesterol, Calc HDL Cholesterol Cholesterol/HDL Ratio TSH Urine Color Yellow Urine Clarity Hazy H Urine pH 6.0 Ur Specific [place] 1.011 Urine Protein Negative Urine Glucose (UA) Negative Urine Ketones Negative Urine Occult Blood Negative Urine Nitrate Negative Urine Bilirubin Negative Urine Urobilinogen Less than 2 Ur Leukocyte Esterase Negative Urine RBC 1 Urine WBC 1 Micro UA Comment Culture not ind Ur Microscopic Review Not Reportable Urine Culture Comments Culture not ind 03/11/18 03/12/18 19:25 06:15 WBC 4.9 RBC 4.66 Hgb 14.8 Hct 43.8 MCV 94.0 MCH 31.8 MCHC 33.8 RDW 13.6 Plt Count 164 MPV 8.6 Neut % (Auto) 54.9 Lymph % (Auto) 33.5 [place] % (Auto) 8.7 H Eos % (Auto) 2.3 Baso % (Auto) 0.6 Neut # (Auto) 2.7 Lymph # (Auto) 1.6 [place] # (Auto) 0.4 Eos # (Auto) 0.1 Baso # (Auto) 0.0 WBC Differential . Differential Comment Auto diff final PT INR APTT Sodium Potassium Chloride Carbon Dioxide Anion Gap BUN Creatinine Estimated GFR Random Glucose Hemoglobin A1c Calcium Total Bilirubin AST ALT Alkaline Phosphatase Total Creatine Kinase CK-MB (CK-2) Troponin I Less than 0.02 L Total Protein Albumin Triglycerides Cholesterol LDL Cholesterol, Calc HDL Cholesterol Cholesterol/HDL Ratio TSH Urine Color Urine Clarity Urine pH Ur Specific [place] Urine Protein Urine Glucose (UA) Urine Ketones Urine Occult Blood Urine Nitrate Urine Bilirubin Urine Urobilinogen Ur Leukocyte Esterase Urine RBC Urine WBC Micro UA Comment Ur Microscopic Review Urine Culture Comments - Imaging Neck MRA 03/11/18 00:00 CONCLUSION: 1. Hemodynamically significant stenosis at the left proximal internal carotid artery. 2. No evidence for hemodynamically significant stenosis on the right. Percent stenosis is calculated using the diameter of the stenotic region over the diameter of the normal distal internal carotid artery Chest X-Ray 03/11/18 08:12 CONCLUSION: Negative examination. Head CT 03/11/18 08:12 CONCLUSION: 1. Area of abnormal density involving the left parietal lobe. Differential diagnostic considerations would include infarction versus mass. MRI of the brain with gadolinium is suggested to further assess . Head MRI 03/11/18 08:49 CONCLUSION: Patchy evolving subacute strokes in the left hemisphere as described. Head MRA 03/11/18 12:54 CONCLUSION: 1. Negative MRA Cow ([place]) non contrast. Assessment and Plan - Assessment (1) Acute ischemic left MCA stroke Code(s): I63.512 - Cerebral infarction due to unspecified occlusion or stenosis of left middle cerebral artery Status: Acute (2) Tobacco use Code(s): Z72.0 - Tobacco use Status: Chronic (3) ESTELA (acute kidney injury) Code(s): N17.9 - Acute kidney failure, unspecified Status: Acute (4) HTN (hypertension) Code(s): I10 - Essential (primary) hypertension Status: Acute - Plan 62 y/o CM with PMHx Anxiety here for evaluation of right hand numbness that began at 5AM and 2 week history of blurred vision. Multiple Subacute Left Hemispheric MCA Territory CVAs: -Head CT reviewed, shows area of abnormal density involving the left parietal lobe. -Brain MRI reviewed, shows Patchy evolving subacute strokes in the left hemisphere -Head MRA unremarkable -Neck MRA shows hemodynamically significant 80-85% stenosis at the left proximal internal carotid artery; No evidence for hemodynamically significant stenosis on the right. -Neurochecks, monitor on telemetry -Echocardiogram unremarkable with EF 50% -Lipid panel with elevated LDL 111, hemoglobin A1c 5.9 -Started on aspirin and statin -Consult PT/OT/ST -Consult neurology, appreciate recommendations Severe left internal carotid stenosis: Seen on neck MRA -Consult vascular surgery, plan for carotid endarterectomy Tobacco use: Chronic -Counseled on cessation Hypertension: No history of hypertension reported. Possibly exacerbated by patient's anxiety during hospitalization -Given Ativan for anxiety, BP has now been very well controlled in the 120s without antihypertensives -Continue to monitor BP Acute Kidney Injury: BUN 20, Creatinine 1.19. Suspect mild dehydration -Continue IV fluids -Avoid nephrotoxins -Monitor renal function, creatinine 1.02 today, improving Anxiety: Patient complaining of anxiety during hospitalization, not on medications at home -Will give Ativan as needed while in the hospital DVT prophylaxis: Heparin sq I spent 35 minutes [id number] with the patient or on the vang discussing the patient's disposition, prognosis, and plan of care with his caregivers. Over half the time spent was devoted to counseling the patient regarding placement in coordinating care with caregivers and case management
[2018-03-12 09:05] LABS: Albumin 3.1 g/dL (3.4-5.0); Anion Gap 7 meq/L (5-15); Aspartate Aminotransferase 12 U/L (15-37); Blood Urea Nitrogen 15 mg/dL (7-18); Carbon Dioxide 21.3 meq/L (21.0-32.0); Chloride 115 meq/L (98-107); Glomerular Filtration Rate 74 mL/min (>89); Glucose,Random 99 mg/dL (74-106); Potassium 4.2 meq/L (3.5-5.1); Sodium 143 meq/L (136-145)
[2018-03-12 09:09] LABS: Alanine Aminotransferase 20 U/L (12-78); Alkaline Phosphatase 66 U/L (45-117); Total Protein 5.9 g/dL (6.4-8.2)
[2018-03-12] MEDS: LORazepam 0.5 MG Tablet PO PRN ×2 (10:26→21:03)
--- NOTE | 2018-03-12 10:49 | P.PNVS ---
Subjective Subjective/Hospital Course: Referral received, patient evaluated Full consult dictated Patient scheduled for left carotid endarterectomy Wednesday and I agree with Dr. Toledo's assessment and plan Thanks so much for the referral J Objective Vital Signs / I&O: Vital Signs 03/11/18 14:00 03/11/18 15:52 03/11/18 19:52 Temperature 97.4 F L 98.1 F Pulse Rate 64 61 73 Respiratory Rate 17 18 19 Blood Pressure 133/70 135/72 111/68 Pulse Oximetry 98 99 95 03/11/18 20:04 03/12/18 00:00 03/12/18 04:00 Temperature 98.1 F 97.5 F L 97.5 F L Pulse Rate 81 71 68 Respiratory Rate 19 20 20 Blood Pressure 142/79 H 109/65 126/74 Pulse Oximetry 98 98 95 03/12/18 08:00 Temperature 97.8 F Pulse Rate 61 Respiratory Rate 16 Blood Pressure 129/78 Pulse Oximetry 100 Intake & Output 03/11/18 03/12/18 03/12/18 18:59 06:59 18:59 Intake Total 1999 Output Total 900 / 900 Balance 1100 / 1100 Weight 62.596 kg 62.5 kg Intake: IV 1999 NS Inj 1,000 ML @ 125 mls/hr IV 1999 .CONT .Q8H [facility] Rx#:[id number] Output: Urine 900 / 900 Other: Date of Last Bowel Movement 03/11/18 03/11/18 Weight On Admission 62.596 kg Laboratory Results - last 24 hr 03/11/18 03/11/18 03/11/18 08:00 08:00 08:00 WBC RBC Hgb Hct MCV MCH MCHC RDW Plt Count MPV Neut % (Auto) Lymph % (Auto) [place] % (Auto) Eos % (Auto) Baso % (Auto) Neut # (Auto) Lymph # (Auto) [place] # (Auto) Eos # (Auto) Baso # (Auto) WBC Differential Differential Comment PT INR APTT Sodium Potassium Chloride Carbon Dioxide Anion Gap BUN Creatinine Estimated GFR Random Glucose Hemoglobin A1c 5.9 Calcium Total Bilirubin AST ALT Alkaline Phosphatase Troponin I Total Protein Albumin Triglycerides 63 Cholesterol 189 LDL Cholesterol, Calc 111 H HDL Cholesterol 65.1 H Cholesterol/HDL Ratio 2.90 TSH 1.790 Urine Color Urine Clarity Urine pH Ur Specific [place] Urine Protein Urine Glucose (UA) Urine Ketones Urine Occult Blood Urine Nitrate Urine Bilirubin Urine Urobilinogen Ur Leukocyte Esterase Urine RBC Urine WBC Micro UA Comment Ur Microscopic Review Urine Culture Comments 03/11/18 03/11/18 03/11/18 13:35 13:35 15:17 WBC RBC Hgb Hct MCV MCH MCHC RDW Plt Count MPV Neut % (Auto) Lymph % (Auto) [place] % (Auto) Eos % (Auto) Baso % (Auto) Neut # (Auto) Lymph # (Auto) [place] # (Auto) Eos # (Auto) Baso # (Auto) WBC Differential Differential Comment PT 10.2 INR 1.0 APTT 24.0 L Sodium Potassium Chloride Carbon Dioxide Anion Gap BUN Creatinine Estimated GFR Random Glucose Hemoglobin A1c Calcium Total Bilirubin AST ALT Alkaline Phosphatase Troponin I Less than 0.02 L Total Protein Albumin Triglycerides Cholesterol LDL Cholesterol, Calc HDL Cholesterol Cholesterol/HDL Ratio TSH Urine Color Yellow Urine Clarity Hazy H Urine pH 6.0 Ur Specific [place] 1.011 Urine Protein Negative Urine Glucose (UA) Negative Urine Ketones Negative Urine Occult Blood Negative Urine Nitrate Negative Urine Bilirubin Negative Urine Urobilinogen Less than 2 Ur Leukocyte Esterase Negative Urine RBC 1 Urine WBC 1 Micro UA Comment Culture not ind Ur Microscopic Review Not Reportable Urine Culture Comments Culture not ind 03/11/18 03/12/18 03/12/18 19:25 06:15 06:15 WBC 4.9 RBC 4.66 Hgb 14.8 Hct 43.8 MCV 94.0 MCH 31.8 MCHC 33.8 RDW 13.6 Plt Count 164 MPV 8.6 Neut % (Auto) 54.9 Lymph % (Auto) 33.5 [place] % (Auto) 8.7 H Eos % (Auto) 2.3 Baso % (Auto) 0.6 Neut # (Auto) 2.7 Lymph # (Auto) 1.6 [place] # (Auto) 0.4 Eos # (Auto) 0.1 Baso # (Auto) 0.0 WBC Differential . Differential Comment Auto diff final PT INR APTT Sodium 143 Potassium 4.2 Chloride 115 H Carbon Dioxide 21.3 Anion Gap 7 BUN 15 Creatinine 1.02 Estimated GFR 74 L Random Glucose 99 Hemoglobin A1c Calcium 8.0 L Total Bilirubin 0.7 AST 12 L ALT 20 Alkaline Phosphatase 66 Troponin I Less than 0.02 L Total Protein 5.9 L D Albumin 3.1 L D Triglycerides Cholesterol LDL Cholesterol, Calc HDL Cholesterol Cholesterol/HDL Ratio TSH Urine Color Urine Clarity Urine pH Ur Specific [place] Urine Protein Urine Glucose (UA) Urine Ketones Urine Occult Blood Urine Nitrate Urine Bilirubin Urine Urobilinogen Ur Leukocyte Esterase Urine RBC Urine WBC Micro UA Comment Ur Microscopic Review Urine Culture Comments Impressions Neck MRA 03/11/18 00:00 CONCLUSION: 1. Hemodynamically significant stenosis at the left proximal internal carotid artery. 2. No evidence for hemodynamically significant stenosis on the right. Percent stenosis is calculated using the diameter of the stenotic region over the diameter of the normal distal internal carotid artery Chest X-Ray 03/11/18 08:12 CONCLUSION: Negative examination. Head CT 03/11/18 08:12 CONCLUSION: 1. Area of abnormal density involving the left parietal lobe. Differential diagnostic considerations would include infarction versus mass. MRI of the brain with gadolinium is suggested to further assess . Head MRI 03/11/18 08:49 CONCLUSION: Patchy evolving subacute strokes in the left hemisphere as described. Head MRA 03/11/18 12:54 CONCLUSION: 1. Negative MRA Cow ([place]) non contrast.
--- NOTE | 2018-03-12 13:38 | P.PNNEU ---
Subjective Subjective Comments: No cp, no dyspnea, no odom, no focal weakness, no vision loss Active Medications: Active Medications Acetaminophen (Tylenol) 650 mg PO Q4H PRN PRN Reason: Temp > 100.4 Al Hydroxide/Mg Hydroxide (Milk Of Magnesia Liq) 30 ml PO Q12H PRN PRN Reason: Mild Constipation Aspirin (Aspirin) 325 mg PO DAILY [facility] Last Admin: 03/12/18 08:29 Dose: 325 mg Bisacodyl (Dulcolax Supp) 10 mg RECTAL DAILY PRN PRN Reason: SEVERE CONSITIPATION Heparin Sodium (Porcine) (Heparin Inj) 5,000 units SQ Q12H [facility] Last Admin: 03/12/18 03:42 Dose: 5,000 units Sodium Chloride (Ns Inj) 1,000 mls @ 125 mls/hr IV.CONT .Q8H [facility] Last Admin: 03/12/18 13:10 Dose: 125 mls/hr Lactulose (Lactulose Liq) 30 ml PO DAILY PRN PRN Reason: SEVERE CONSITIPATION Lorazepam (Ativan) 0.5 mg PO TID PRN PRN Reason: ANXIETY Last Admin: 03/12/18 10:26 Dose: 0.5 mg Nicotine (Habitrol 21 Mg Patch.24 Hr) 1 patch T-DERMAL DAILY [facility] Last Admin: 03/12/18 08:29 Dose: 1 patch Ondansetron HCl (Zofran Inj) 4 mg IV.PUSH Q6H PRN PRN Reason: NAUSEA OR VOMITING Patch Removal (Remove Old Patch) 1 each T-DERMAL DAILY [facility] Last Admin: 03/12/18 08:30 Dose: 1 each Pravastatin Sodium (Pravachol) 20 mg PO DAILY [facility] Last Admin: 03/12/18 08:29 Dose: 20 mg Prednisolone Acetate (Pred Forte 1% Opth Susp) 1 drop LEFT EYE Q6H [facility] Last Admin: 03/12/18 08:29 Dose: 1 drop Senna/Docusate Sodium (Chasity-Colace) 1 tab PO BID [facility] Last Admin: 03/12/18 08:28 Dose: Not Given Sennosides (Senokot) 17.2 mg PO Q12H PRN PRN Reason: Moderate Constipation Sodium Chloride (Ns Flush) 2 ml IV.FLUSH BID [facility] Last Admin: 03/12/18 08:26 Dose: Not Given Sodium Chloride (Ns Flush) 2 ml IV.FLUSH PRN PRN PRN Reason: FLUSH AFTER USING IV ACCESS Allergies/Adverse Reactions: Allergies Allergy/AdvReac Type Severity Reaction Status Date / Time No Known Allergies Allergy Verified 03/11/18 07:58 Review of Systems All other systems reviewed negative except as stated in HPI Physical Exam Vital signs: Vital Signs 03/11/18 14:00 03/11/18 15:52 03/11/18 19:52 Temperature 97.4 F L 98.1 F Pulse Rate 64 61 73 Respiratory Rate 17 18 19 Blood Pressure 133/70 135/72 111/68 Pulse Oximetry 98 99 95 03/11/18 20:04 03/12/18 00:00 03/12/18 04:00 Temperature 98.1 F 97.5 F L 97.5 F L Pulse Rate 81 71 68 Respiratory Rate 19 20 20 Blood Pressure 142/79 H 109/65 126/74 Pulse Oximetry 98 98 95 03/12/18 08:00 03/12/18 08:05 03/12/18 11:52 Temperature 97.8 F 98.3 F Pulse Rate 61 62 79 Respiratory Rate 16 16 Blood Pressure 129/78 122/71 Pulse Oximetry 100 98 Intake & Output 03/11/18 03/12/18 03/12/18 18:59 06:59 18:59 Intake Total 2000 / 1999 1000 / 1000 Output Total 900 / 900 Balance 1100 / 1100 1000 / 1000 Weight 62.596 kg 62.5 kg Intake: IV 1999 1000 / 1000 NS Inj 1,000 ML @ 125 mls/hr IV 1999 / 1999 1000 / 1000 .CONT .Q8H [facility] Rx#:[id number] Output: Urine 900 / 900 Other: Date of Last Bowel Movement 03/11/18 03/11/18 Weight On Admission 62.596 kg Narrative: Awake alert oriented x3 no aphasia sitting up eating lunch comfortably using both arms. Clear speech visual perea full moving all extremity gravity no drift - Constitutional no acute distress - Routine HEENT Exam Head: Present: normocephalic Eye: Present: EOMI Objective Laboratory Results - last 24 hr 03/11/18 03/11/18 03/11/18 08:00 08:00 13:35 WBC RBC Hgb Hct MCV MCH MCHC RDW Plt Count MPV Neut % (Auto) Lymph % (Auto) [place] % (Auto) Eos % (Auto) Baso % (Auto) Neut # (Auto) Lymph # (Auto) [place] # (Auto) Eos # (Auto) Baso # (Auto) WBC Differential Differential Comment PT INR APTT Sodium Potassium Chloride Carbon Dioxide Anion Gap BUN Creatinine Estimated GFR Random Glucose Hemoglobin A1c 5.9 Calcium Total Bilirubin AST ALT Alkaline Phosphatase Troponin I Less than 0.02 L Total Protein Albumin Triglycerides 63 Cholesterol 189 LDL Cholesterol, Calc 111 H HDL Cholesterol 65.1 H Cholesterol/HDL Ratio 2.90 Urine Color Urine Clarity Urine pH Ur Specific [place] Urine Protein Urine Glucose (UA) Urine Ketones Urine Occult Blood Urine Nitrate Urine Bilirubin Urine Urobilinogen Ur Leukocyte Esterase Urine RBC Urine WBC Micro UA Comment Ur Microscopic Review Urine Culture Comments 03/11/18 03/11/18 03/11/18 13:35 15:17 19:25 WBC RBC Hgb Hct MCV MCH MCHC RDW Plt Count MPV Neut % (Auto) Lymph % (Auto) [place] % (Auto) Eos % (Auto) Baso % (Auto) Neut # (Auto) Lymph # (Auto) [place] # (Auto) Eos # (Auto) Baso # (Auto) WBC Differential Differential Comment PT 10.2 INR 1.0 APTT 24.0 L Sodium Potassium Chloride Carbon Dioxide Anion Gap BUN Creatinine Estimated GFR Random Glucose Hemoglobin A1c Calcium Total Bilirubin AST ALT Alkaline Phosphatase Troponin I Less than 0.02 L Total Protein Albumin Triglycerides Cholesterol LDL Cholesterol, Calc HDL Cholesterol Cholesterol/HDL Ratio Urine Color Yellow Urine Clarity Hazy H Urine pH 6.0 Ur Specific [place] 1.011 Urine Protein Negative Urine Glucose (UA) Negative Urine Ketones Negative Urine Occult Blood Negative Urine Nitrate Negative Urine Bilirubin Negative Urine Urobilinogen Less than 2 Ur Leukocyte Esterase Negative Urine RBC 1 Urine WBC 1 Micro UA Comment Culture not ind Ur Microscopic Review Not Reportable Urine Culture Comments Culture not ind 03/12/18 03/12/18 06:15 06:15 WBC 4.9 RBC 4.66 Hgb 14.8 Hct 43.8 MCV 94.0 MCH 31.8 MCHC 33.8 RDW 13.6 Plt Count 164 MPV 8.6 Neut % (Auto) 54.9 Lymph % (Auto) 33.5 [place] % (Auto) 8.7 H Eos % (Auto) 2.3 Baso % (Auto) 0.6 Neut # (Auto) 2.7 Lymph # (Auto) 1.6 [place] # (Auto) 0.4 Eos # (Auto) 0.1 Baso # (Auto) 0.0 WBC Differential . Differential Comment Auto diff final PT INR APTT Sodium 143 Potassium 4.2 Chloride 115 H Carbon Dioxide 21.3 Anion Gap 7 BUN 15 Creatinine 1.02 Estimated GFR 74 L Random Glucose 99 Hemoglobin A1c Calcium 8.0 L Total Bilirubin 0.7 AST 12 L ALT 20 Alkaline Phosphatase 66 Troponin I Total Protein 5.9 L D Albumin 3.1 L D Triglycerides Cholesterol LDL Cholesterol, Calc HDL Cholesterol Cholesterol/HDL Ratio Urine Color Urine Clarity Urine pH Ur Specific [place] Urine Protein Urine Glucose (UA) Urine Ketones Urine Occult Blood Urine Nitrate Urine Bilirubin Urine Urobilinogen Ur Leukocyte Esterase Urine RBC Urine WBC Micro UA Comment Ur Microscopic Review Urine Culture Comments Review/Management - Diagnosis (1) Stenosis of left internal carotid artery with cerebral infarction Code(s): I63.232 - Cerebral infarction due to unspecified occlusion or stenosis of left carotid arteries Status: Acute Current Visit: Yes (2) Acute ischemic left MCA stroke Code(s): I63.512 - Cerebral infarction due to unspecified occlusion or stenosis of left middle cerebral artery Status: Acute Current Visit: Yes (3) Tobacco use Code(s): Z72.0 - Tobacco use Status: Chronic Current Visit: Yes - Review/Management Plan: MRI brain scan reviewed diffusion-weighted imaging studies positive. He has scattered left hemispheric strokes which would be suggestive of a proximal left MCA or left internal carotid artery stenosis/occlusion. With his history of amaurosis fugax I suspect he has symptomatic left carotid stenosis which may be secondary to chronic tobacco use MRA carotids reveal stenotic left carotid Recommendation Appreciate vascular surgery evaluation Left carotid endarterectomy as per surgery. Nondisabling stroke at present Behavioral modification and risk factor reduction. Tobacco cessation weight loss, blood pressure control, blood sugar control, lipid control. Exercise
--- NOTE | 2018-03-12 18:18 | MB ---
cc: Terence Woo MD DATE: 03/12/2018 CONSULTING PHYSICIAN: Terence Woo MD, vascular surgery. REASON FOR CONSULTATION: Left internal carotid artery tight stenosis, TIAs x3, amaurosis fugax and hypertension. 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 The patient states that he could not control it and became dystaxic. The patient states that in the past month, he had several episodes where he lost partial vision in the left eye where he saw a curtain come down and then it would improve. This is classic presentation of amaurosis Fugax. In addition, the patient states that in the past few months, he has had weakness in the right hand and weakness in the right arm with dystaxia that would come and go and he attributed this to maybe a carpal tunnel syndrome while working. Finally, the patient showed up here in the hospital. He was worked up, found to have a very tight about 80% to 90% left internal carotid artery stenosis by MRA and a tiny possibly old focus of parietal ischemic stroke on the left. PAST SURGICAL HISTORY: None. PAST MEDICAL HISTORY: Hypertension. SOCIAL HISTORY: The patient smokes about a pack a day. He works as a rosen. PHYSICAL EXAMINATION: GENERAL: Reveals a pleasant 62-year-old gentleman. HEENT: Normocephalic. No trauma to the head. Pupils equally reactive. Extraocular muscles intact. NECK: Bilateral carotid pulses and essentially I do not hear a bruit. CHEST: Bilateral breath sounds somewhat decreased over both apices consistent with mild to moderate COPD and some loss of chest wall musculature. HEART: Regular rhythm. ABDOMEN: Soft. Active bowel sounds. No rebound, no guarding, no masses. EXTREMITIES: Grossly within normal limits with good proximal and distal pulses and no acute vascular deficit. BACK: Normal. NEUROLOGIC: The patient is grossly intact. There is no localization, no drift. Cranial nerves 2-12 normal. The patient has bilateral equal strength, deep tendon reflexes are normal and no pathologic reflexes IMPRESSION AND RECOMMENDATION: Patient with clear symptoms of left hemispheric symptoms and left internal carotid artery stenosis. The patient will be scheduled for left carotid endarterectomy on Wednesday. Thank you very much for referral. Terence Woo MD SJ/ct , 03:29 PM , 03:37 PM
[2018-03-12] MEDS: Acetaminophen 325 MG Tablet PO PRN (21:06)
[2018-03-13] MEDS: Heparin - SQ 10,000 UNITS/ML Vial SQ SCH ×2 (03:19→14:51)
[2018-03-13] MEDS: prednisoLONE Acetate 1% Opth Susp 5 ML Bottle LEFT EYE SCH ×4 (03:19→21:07)
[2018-03-13] MEDS: Sod Chloride 0.9% Inj 1,000 ML IV.CONT SCH ×3 (04:46→21:06)
[2018-03-13] MEDS: Aspirin 325 MG Tablet PO SCH (08:25)
[2018-03-13] MEDS: Senna/Docusate Sodium 8.6/50 MG Tablet PO SCH ×2 (08:25→21:07)
[2018-03-13] MEDS: Acetaminophen 325 MG Tablet PO PRN ×2 (08:25→15:40)
[2018-03-13] MEDS: Sodium Chloride 0.9% 2 ML Flush BID IV.FLUSH SCH ×2 (08:26→21:06)
--- NOTE | 2018-03-13 10:48 | P.PNVS ---
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 The patient states that he could not control it and became dystaxic. The patient states that in the past month, he had several episodes where he lost partial vision in the left eye where he saw a curtain come down and then it would improve. This is classic presentation of amaurosis fugax. In addition, the patient states that in the past few months, he has had weakness in the right hand and weakness in the right arm with dystaxia that would come and go and he attributed this to maybe a carpal tunnel syndrome while working. Finally, the patient showed up here in the hospital. He was worked up, found to have a very tight about 80% to 90% left internal carotid artery stenosis by MRA and a tiny possibly old focus of parietal ischemic stroke on the left. Patient with clear symptoms of left hemispheric symptoms and left internal carotid artery stenosis. The patient will be scheduled for left carotid endarterectomy tomorrow. I reviewed the EKG and cardiac echo and I believe based on the nature of his findings and tight carotid stenosis patient is a moderate cardiovascular risk for surgery but any further delays are unwarranted. Objective Vital Signs / I&O: Vital Signs 03/12/18 11:52 03/12/18 16:00 03/12/18 20:00 Temperature 98.3 F 97.9 F 97.8 F Pulse Rate 79 69 75 Respiratory Rate 16 12 18 Blood Pressure 122/71 143/79 H 127/84 Pulse Oximetry 98 97 94 L 03/13/18 00:00 03/13/18 04:00 03/13/18 08:00 Temperature 97.6 F 97.4 F L 98 F Pulse Rate 57 L 66 75 Respiratory Rate 18 16 18 Blood Pressure 126/72 122/68 138/83 Pulse Oximetry 96 97 98 Intake & Output 03/12/18 03/13/18 03/13/18 18:59 06:59 18:59 Intake Total 999 / 999 Balance 999 Weight 62.5 kg Intake: IV 999 / 999 NS Inj 1,000 ML @ 125 mls/hr IV 999 .CONT .Q8H [facility] Rx#:[id number] Other: Date of Last Bowel Movement 03/11/18 03/11/18 03/11/18 Laboratory Results - last 24 hr 03/12/18 17:21 Blood Type O Positive Blood Type Recheck Required Antibody Screen Negative Impressions Neck MRA 03/11/18 00:00 CONCLUSION: 1. Hemodynamically significant stenosis at the left proximal internal carotid artery. 2. No evidence for hemodynamically significant stenosis on the right. Percent stenosis is calculated using the diameter of the stenotic region over the diameter of the normal distal internal carotid artery Head MRI 03/11/18 08:49 CONCLUSION: Patchy evolving subacute strokes in the left hemisphere as described. Head MRA 03/11/18 12:54 CONCLUSION: 1. Negative MRA Cow ([place]) non contrast.
--- NOTE | 2018-03-13 11:02 | P.PNIM ---
Subjective Interval history: Follow-up with acute ischemic stroke, AKA, hypertension, acute kidney injury, anxiety and tobacco use. Patient seen and examined sitting on the chair, awake alert and oriented x3. Patient complains of headache on his left side, complains of his eyes bothering him since admission, complains of double vision , feeling like there is a court and on top of his eyes. Stated this is what brought him here. Nurse reported he just gave the Tylenol for headache. Patient admitted that he smokes a pack a day previously, and does not take any medication. Patient denies any weakness on either part of the body, except numbness and tingling on his right hand with some weakness and unable to hold a spoon and fork before admission. Patient denies any weakness on the right lower extremity denies numbness on either side of the face. Patient denies any chest pain or shortness of breath, abdominal pain, nausea, vomiting, diarrhea or constipation. Patient denies any fever or chills. Patient showing emotional /anxiety interiors, states that he does not have insurance and does not know what can happen. Discussed the patient will have the social work manager speak with him regarding the insurance. Discussed procedure for possible right endorectal he scheduled for Wednesday. Patient agreed. Discussed nothing to eat or drink from midnight Physical Exam Vital signs: Vital Signs 03/12/18 11:52 03/12/18 16:00 03/12/18 20:00 Temperature 98.3 F 97.9 F 97.8 F Pulse Rate 79 69 75 Respiratory Rate 16 12 18 Blood Pressure 122/71 143/79 H 127/84 Pulse Oximetry 98 97 94 L 03/13/18 00:00 03/13/18 04:00 03/13/18 08:00 Temperature 97.6 F 97.4 F L 98 F Pulse Rate 57 L 66 75 Respiratory Rate 18 16 18 Blood Pressure 126/72 122/68 138/83 Pulse Oximetry 96 97 98 Intake & Output 03/12/18 03/13/18 03/13/18 18:59 06:59 18:59 Intake Total 999 Balance 999 Weight 62.5 kg Intake: IV 999 NS Inj 1,000 ML @ 125 mls/hr IV 999 .CONT .Q8H [facility] Rx#:[id number] Other: Date of Last Bowel Movement 03/11/18 03/11/18 03/11/18 Narrative: GENERAL: Well-nourished, well-developed pleasant middle-aged male in no apparent distress. SKIN: Warm and dry. No rash. HEENT: Normocephalic. Atraumatic. Pupils equal and round. EOMI. No visual field deficit. Mucous membranes pink and moist. NECK: Supple. Trachea midline. CARDIOVASCULAR: Regular rate and rhythm. No murmur appreciated. RESPIRATORY: No accessory muscle use. Clear to auscultation. Breath sounds equal bilaterally. GASTROINTESTINAL: Abdomen soft, non-tender, nondistended. Normoactive bowel sounds x4. MUSCULOSKELETAL: No obvious deformities. Extremities without clubbing, cyanosis , or edema. NEUROLOGICAL: Awake and alert. No obvious cranial nerve deficits. Right upper extremity 4/5 strength, all other extremities 5/5 strength. Normal speech. No pronator drift. No facial droop, lid lag, or tongue deviation. PSYCHIATRIC: Appropriate mood and affect; insight and judgment normal. Results - Labs CBC & Chem 7: 03/12/18 06:15 03/12/18 06:15 Laboratory Results - last 24 hr 03/12/18 17:21 Blood Type O Positive Blood Type Recheck Required Antibody Screen Negative Assessment and Plan - Assessment (1) Acute ischemic left MCA stroke Code(s): I63.512 - Cerebral infarction due to unspecified occlusion or stenosis of left middle cerebral artery Status: Acute (2) Tobacco use Code(s): Z72.0 - Tobacco use Status: Chronic (3) ESTELA (acute kidney injury) Code(s): N17.9 - Acute kidney failure, unspecified Status: Acute (4) HTN (hypertension) Code(s): I10 - Essential (primary) hypertension Status: Acute - Plan This is a 62-year-old male with past medical history of anxiety came into the hospital for evaluation of right hand numbness that began at [address] head and brain found to have patchy evolving subacute strokes in the left hemiparetic hemisphere, neurology has been consulted. CVA/TIA, subacute stroke in the left hemisphere Head CT: area of abnormal density involving the left parietal lobe. Brain MRI : Patchy evolving subacute strokes in the left hemisphere Head MRA unremarkable Neck MRA: hemodynamically significant 80-85% stenosis at the left proximal internal carotid artery; No evidence for hemodynamically significant stenosis on the right. 2D echo on 03/11/18 resulted: LVEF borderline normal 50%. Trace mitral valve regurgitation. Mild thickening of the aortic valve leaflets. The estimated pulmonary arterial pressure is 19 mmHg. There is trace tricuspid valve regurgitation. Trivial pericardial effusion. -Neuro checks, monitor on telemetry -Lipid panel with elevated LDL 111, hemoglobin A1c 5.9 -Continue aspirin, Plavix and statin -Consult PT/OT/ST -Neurology consult appreciated: Not a good candidate for TPA due to onset of symptoms Severe left internal carotid stenosis Seen on neck MRA: hemodynamically significant 80-85% stenosis at the left proximal internal carotid artery -Vascular surgery consulted -plan for carotid endarterectomy on Wednesday morning -N.p.o. after midnight tonight Tobacco use Chronic -Counseled on cessation Hypertension No history of hypertension reported. Possibly exacerbated by patient's anxiety during hospitalization -Given Ativan for anxiety, BP has now been very well controlled in the 120s without antihypertensives -Continue to monitor BP Acute Kidney Injury BUN 20, Creatinine 1.19. Suspect mild dehydration. Improving -Continue IV fluids -Avoid nephrotoxins -Monitor renal function, creatinine 1.02 today, improving Anxiety Patient complaining of anxiety during hospitalization, not on medications at home -Will give Ativan as needed while in the hospital DVT prophylaxis: Heparin subcu Code Status: Full code Discussed Condition With: patient and nurse Discharge Planning: Discharge planning in 2-3 days post right carotid in neurectomy and when cleared with neuro and surgeon
[2018-03-13] MEDS: LORazepam 0.5 MG Tablet PO PRN ×2 (14:59→21:06)
[2018-03-13] MEDS ORDERED: Metoprolol Tartrate 25 MG Tablet PO ONE (17:39)
[2018-03-13] MEDS ORDERED: Chlorhexidine Gluconate 2% 1 Pack (2 Cloths) TOPICAL ONE (17:39)
[2018-03-13] MEDS ORDERED: Sodium Chlor 0.9% Inj 500 ML IV.SIG SCH (18:00)
[2018-03-14] MEDS: Heparin - SQ 10,000 UNITS/ML Vial SQ SCH ×2 (03:22→15:14)
[2018-03-14] MEDS: prednisoLONE Acetate 1% Opth Susp 5 ML Bottle LEFT EYE SCH ×4 (03:23→20:04)
[2018-03-14] MEDS ORDERED: Chlorhexidine Gluconate 2% 1 Pack (2 Cloths) TOPICAL ONE (05:00)
[2018-03-14] MEDS ORDERED: Metoprolol Tartrate 25 MG Tablet PO ONE (05:00)
[2018-03-14] MEDS ORDERED: Sodium Chlor 0.9% Inj 500 ML IV.SIG SCH (05:00)
[2018-03-14] MEDS ORDERED: Lidocaine 2% Inj 50 ML Vial ONE (07:47)
[2018-03-14] MEDS ORDERED: Heparin 10,000 UNITS/10 ML Vial (for IV use) ONE (07:47)
[2018-03-14] MEDS ORDERED: Protamine Sulfate Inj 50 MG/5 ML Vial ONE (07:48)
[2018-03-14] MEDS: Senna/Docusate Sodium 8.6/50 MG Tablet PO SCH ×2 (08:40→20:04)
[2018-03-14] MEDS: Sodium Chloride 0.9% 2 ML Flush BID IV.FLUSH SCH ×2 (08:41→20:04)
[2018-03-14] MEDS: Acetaminophen 325 MG Tablet PO PRN (08:42)
[2018-03-14] MEDS: Sod Chloride 0.9% Inj 1,000 ML IV.CONT SCH ×4 (08:45→23:12)
[2018-03-14] MEDS: Aspirin 325 MG Tablet PO SCH (08:47)
[2018-03-14] MEDS ORDERED: Influenza (Quadrivalent) Vaccine 0.5 ML Syringe IM ONE (09:00)
[2018-03-14] MEDS ORDERED: Sodium Chlor 0.9% Inj 500 ML IV.CONT ONE (10:35)
[2018-03-14] MEDS ORDERED: Neostigmine Inj 5 MG/5 ML Syringe IV.PUSH ONE (10:35)
[2018-03-14] MEDS ORDERED: Lidocaine PF 1% Inj 5 ML Syringe OTHER ONE (10:35)
[2018-03-14] MEDS ORDERED: Glycopyrrolate Inj 1 MG/5 ML Syringe IV.PUSH ONE (10:35)
[2018-03-14] MEDS ORDERED: Phenylephrine/NS 1000 MCG/10ML Syringe IV.PUSH ONE (10:35)
--- NOTE | 2018-03-14 12:53 | P.PNIM ---
Subjective Interval history: Follow-up with acute ischemic stroke, AKA, hypertension, acute kidney injury, anxiety and tobacco use. Patient seen and examined sitting in the bed, family at bedside. Discussed plan for left carotid enterectomy today, n.p.o. after midnight confirmed. Patient denies any headache, pain, chest pain, or shortness of breath. Patient denies any abdominal pain, nausea, vomiting, diarrhea, or constipation. Patient denies any headache or dizziness, denies any blindness in the eyes. Nurse in the room denies any complaint Physical Exam Vital signs: Vital Signs 03/13/18 16:00 03/13/18 20:00 03/14/18 00:00 Temperature 98.4 F 97.5 F L 97.4 F L Pulse Rate 62 67 64 Respiratory Rate 18 18 18 Blood Pressure 148/88 H 127/72 125/74 Pulse Oximetry 97 95 95 03/14/18 04:00 03/14/18 08:00 Temperature 97.8 F 97.3 F L Pulse Rate 66 80 Respiratory Rate 18 20 Blood Pressure 124/70 133/84 Pulse Oximetry 96 98 Intake & Output 03/13/18 03/14/18 03/14/18 18:59 06:59 18:59 Intake Total 1999 Output Total 800 / 800 Balance 1200 / 1200 1999 Weight 62.5 kg Intake: IV 1000 / 1000 1999 NS Inj 1,000 ML @ 125 mls/hr IV 1000 / 1000 1999 .CONT .Q8H [facility] Rx#:[id number] Oral 1000 / 1000 Output: Urine 800 / 800 Other: # Voids 3 Date of Last Bowel Movement 03/11/18 03/13/18 Narrative: GENERAL: Well-nourished, well-developed pleasant middle-aged male in no apparent distress. SKIN: Warm and dry. No rash. HEENT: Normocephalic. Atraumatic. Pupils equal and round. EOMI. No visual field deficit. Mucous membranes pink and moist. NECK: Supple. Trachea midline. CARDIOVASCULAR: Regular rate and rhythm. No murmur appreciated. RESPIRATORY: No accessory muscle use. Clear to auscultation. Breath sounds equal bilaterally. GASTROINTESTINAL: Abdomen soft, non-tender, nondistended. Normoactive bowel sounds x4. MUSCULOSKELETAL: No obvious deformities. Extremities without clubbing, cyanosis , or edema. NEUROLOGICAL: Awake and alert. No obvious cranial nerve deficits. Right upper extremity 4/5 strength, all other extremities 5/5 strength. Normal speech. No pronator drift. No facial droop, lid lag, or tongue deviation. PSYCHIATRIC: Appropriate mood and affect; insight and judgment normal. Results - Labs CBC & Chem 7: 03/12/18 06:15 03/12/18 06:15 Assessment and Plan - Assessment (1) Acute ischemic left MCA stroke Code(s): I63.512 - Cerebral infarction due to unspecified occlusion or stenosis of left middle cerebral artery Status: Acute (2) Tobacco use Code(s): Z72.0 - Tobacco use Status: Chronic (3) ESTELA (acute kidney injury) Code(s): N17.9 - Acute kidney failure, unspecified Status: Acute (4) HTN (hypertension) Code(s): I10 - Essential (primary) hypertension Status: Acute - Plan This is a 62-year-old male with past medical history of anxiety came into the hospital for evaluation of right hand numbness that began at [address] head and brain found to have patchy evolving subacute strokes in the left hemiparetic hemisphere, neurology has been consulted. CVA/TIA, subacute stroke in the left hemisphere Head CT: area of abnormal density involving the left parietal lobe. Brain MRI : Patchy evolving subacute strokes in the left hemisphere Head MRA unremarkable Neck MRA: hemodynamically significant 80-85% stenosis at the left proximal internal carotid artery; No evidence for hemodynamically significant stenosis on the right. 2D echo on 03/11/18 resulted: LVEF borderline normal 50%. Trace mitral valve regurgitation. Mild thickening of the aortic valve leaflets. The estimated pulmonary arterial pressure is 19 mmHg. There is trace tricuspid valve regurgitation. Trivial pericardial effusion. -Neuro checks, monitor on telemetry -Lipid panel with elevated LDL 111, hemoglobin A1c 5.9 -Continue aspirin, Plavix and statin -Consult PT/OT/ST -Neurology consult appreciated: Not a good candidate for TPA due to onset of symptoms Severe left internal carotid stenosis Seen on neck MRA: hemodynamically significant 80-85% stenosis at the left proximal internal carotid artery -Vascular surgery consulted -For left carotid endarterectomy today -N.p.o. after midnight tonight Tobacco use Chronic -Counseled on cessation Hypertension No history of hypertension reported. Possibly exacerbated by patient's anxiety during hospitalization -Given Ativan for anxiety, BP has now been very well controlled in the 120s without antihypertensives -Continue to monitor BP Acute Kidney Injury BUN 20, Creatinine 1.02. Suspect mild dehydration. Improving -Continue IV fluids -Avoid nephrotoxins -Monitor renal function, creatinine 1.02 today, improving Anxiety Patient complaining of anxiety during hospitalization, not on medications at home -Will give Ativan as needed while in the hospital DVT prophylaxis: Heparin subcu Code Status: Full code Discussed Condition With: Patient, family and nurse Discharge Planning: Discharge planning in 2-3 days post right carotid in neurectomy and when cleared with neuro and surgeon
[2018-03-14] MEDS ORDERED: *morphine SULFATE 4 MG/ML PERIprocedure ONLY ONE ×3 (13:18→14:02)
[2018-03-14] MEDS ORDERED: Post-op Orders (for Pharmacy) OTHER ONE (13:19)
[2018-03-14] MEDS ORDERED: fentaNYL Citrate Inj 100 MCG/2 ML Ampul ONE (13:20)
[2018-03-14] MEDS ORDERED: *Meperidine Inj 25 MG/ML Vial PERIprocedural Use ONLY ONE (13:42)
[2018-03-14] MEDS ORDERED: Bisacodyl 10 MG Supp RECTAL PRN (14:44)
[2018-03-14] MEDS ORDERED: Naloxone Inj 0.4 MG/ML Vial IV.PUSH PRN (14:44)
[2018-03-14] MEDS: Morphine Inj 4 MG/ML Vial IV.PUSH PRN ×2 (15:12→20:08)
[2018-03-14] MEDS: LORazepam 0.5 MG Tablet PO PRN (17:36)
--- NOTE | 2018-03-14 18:40 | MP ---
cc: Terence Woo MD DATE OF OPERATION: 03/14/2018 PREOPERATIVE DIAGNOSES: Left internal carotid artery stenosis, repeated transient ischemic attacks and amaurosis fugax. POSTOPERATIVE DIAGNOSES: Left internal carotid artery stenosis, repeated transient ischemic attacks and amaurosis fugax. PROCEDURE PERFORMED: Left carotid endarterectomy with patch angioplasty. SURGEON: Terence Woo MD ANESTHESIA: General. ESTIMATED BLOOD LOSS: 200 mL. DESCRIPTION OF PROCEDURE: The patient was prepped and draped in the usual fashion. A presternocleidomastoid incision made and deepened down through layers of the platysma and then the carotid sheath was entered. The internal carotid, common carotid and external carotid arteries were isolated with sharp and blunt dissection and the hypoglossal nerve was carefully preserved. A Weitlaner retractor and an upper arm retractor were placed. Umbilical tape with a Nicho tourniquet were placed around each vessel respectively. The anatomy was now observed. The internal carotid artery was fairly small, measuring about 4-5 mm in diameter distally and in its bulb it was somewhat bigger. There was a hard plaque in the bulb palpable which extended into the common carotid artery and corresponded to the findings of the MRI. The external carotid artery was somewhat unusual because as soon as the superior thyroid artery branched off, the rest of the vessels came off immediately including the facial artery and the ascending pharyngeal artery. They came out as a trifurcation, which was a very unusual situation. Nonetheless, this did not change the course of the operation. The patient was given 5000 units of heparin and clamps applied, a bulldog to the internal carotid artery and an angled DeBakey to the common carotid artery. The vessel was opened longitudinally with Montano scissors and immediately Tyler shunt displayed blood flow reestablished by cinching down the Rummels. At this point, the vessel was observed and it was noted that there was a large plaque in the proximal internal carotid artery; however, interestingly enough, there was also extension of the plaque into the common carotid artery where this one was elevated and sort of undermined and where probably the patient dissected the common carotid artery. Because of the same, with a Welsh dissector, the entire plaque was now removed, starting from the common carotid artery into the internal carotid artery. It peeled off nicely distally and the intima was nicely attached. The area was irrigated with copious amounts of saline and small debris removed. A small 5 mm bovine patch was now placed and sewn in with running 5-0 Prolene. Prior to completing arteriotomy repair, the Tyler shunt was removed and then the arteriotomy repair was finished. The blood flow was now reestablished in the usual ordered and fashion, preventing internal artery embolization. The area was irrigated with saline and meticulous hemostasis assured. The patient was given 10 units of protamine and then the incision was closed with 0 Vicryl and 4-0 Monocryl. Benzoin and Steri-Strips were applied. In the recovery room, the patient was awake, alert, oriented and neurologically fully intact. MD TY Downs/yoseph , 04:57 PM , 05:08 PM
[2018-03-15] MEDS: Heparin - SQ 10,000 UNITS/ML Vial SQ SCH ×2 (02:25→14:57)
[2018-03-15] MEDS: prednisoLONE Acetate 1% Opth Susp 5 ML Bottle LEFT EYE SCH ×4 (05:49→20:23)
[2018-03-15 06:47] LABS: Baso % (Auto) 0.5 % (0.0-2.0); Eos # (Auto) 0.2 th/mm3 (0.0-0.4); Hematocrit 40.1 % (39.0-51.0); Hemoglobin 13.6 gm/dL (13.0-17.0); Lymph # (Auto) 1.7 th/mm3 (1.0-4.8); Lymph % (Auto) 20.5 % (9.0-44.0); Mean Corpuscular HGB Conc 34.1 % (32.0-36.0); Mean Corpuscular Hemoglobin 31.9 pg (27.0-34.0); Mean Corpuscular Volume 93.7 fL (80.0-100.0); Mean Platelet Volume 8.4 fL (7.0-11.0); Mono # (Auto) 0.6 th/mm3 (0.0-0.9); Neut # (Auto) 5.6 th/mm3 (1.8-7.7); Platelet Count 152 th/mm3 (150-450); Red Blood Count 4.28 mil/mm3 (4.50-5.90); Red Cell Distribution Width 13.4 % (11.6-17.2); White Blood Count 8.1 th/mm3 (4.0-11.0)
[2018-03-15 07:14] LABS: Calcium 7.8 mg/dL (8.5-10.1); Carbon Dioxide 23.6 meq/L (21.0-32.0); Potassium 3.9 meq/L (3.5-5.1)
[2018-03-15] MEDS: Senna/Docusate Sodium 8.6/50 MG Tablet PO SCH ×2 (08:27→20:22)
[2018-03-15] MEDS: Aspirin 325 MG Tablet PO SCH (08:27)
--- NOTE | 2018-03-15 10:24 | P.PNIM ---
Subjective Interval history: Patient doing well postop thus far. No complaints. Blood pressures are elevated. he also had problems with urination starting yesterday and an indwelling Gruber catheter has been placed and Flomax has been started. Physical Exam Vital signs: Vital Signs 03/14/18 13:15 03/14/18 13:30 03/14/18 13:45 Temperature 97.6 F Pulse Rate 76 67 67 Respiratory Rate 12 12 12 Blood Pressure 119/71 118/62 125/67 Pulse Oximetry 100 100 100 03/14/18 14:00 03/14/18 14:15 03/14/18 14:30 Temperature Pulse Rate 65 73 67 Respiratory Rate 13 12 12 Blood Pressure 120/66 120/64 Pulse Oximetry 100 100 100 03/14/18 14:41 03/14/18 14:52 03/14/18 15:00 Temperature 97.3 F L Pulse Rate 76 60 61 Respiratory Rate 15 14 15 Blood Pressure Pulse Oximetry 100 100 03/14/18 15:14 03/14/18 16:00 03/14/18 17:00 Temperature 97.8 F Pulse Rate 59 L 80 Respiratory Rate 14 12 15 Blood Pressure Pulse Oximetry 100 100 03/14/18 18:00 03/14/18 18:06 03/14/18 19:00 Temperature Pulse Rate 67 59 L Respiratory Rate 12 14 14 Blood Pressure Pulse Oximetry 100 100 03/14/18 20:00 03/14/18 21:00 03/14/18 22:00 Temperature 97.9 F Pulse Rate 73 80 76 Respiratory Rate 17 14 15 Blood Pressure Pulse Oximetry 100 100 100 03/14/18 23:00 03/15/18 00:00 03/15/18 01:00 Temperature Pulse Rate 65 63 58 L Respiratory Rate 14 18 12 Blood Pressure Pulse Oximetry 100 99 100 03/15/18 02:00 03/15/18 03:00 03/15/18 04:00 Temperature Pulse Rate 67 59 L 62 Respiratory Rate 12 16 14 Blood Pressure Pulse Oximetry 100 100 100 03/15/18 05:00 03/15/18 06:00 03/15/18 07:00 Temperature Pulse Rate 61 59 L 62 Respiratory Rate 15 23 16 Blood Pressure Pulse Oximetry 100 100 100 03/15/18 07:41 03/15/18 08:00 03/15/18 09:00 Temperature 98 F Pulse Rate 63 59 L Respiratory Rate 12 12 Blood Pressure Pulse Oximetry 100 94 L 95 Intake & Output 03/14/18 03/15/18 03/15/18 18:59 06:59 18:59 Intake Total 2550 / 2550 1120 / 1120 Output Total 790 / 790 2160 / 2160 Balance 1760 / 1760 -1040 / -1040 Weight 75.828 kg Intake: IV 1000 / 1000 1000 / 1000 NS Inj 1,000 ML @ 60 mls/hr IV. 1000 / 1000 1000 / 1000 CONT .[id number] [facility] Rx#:[id number] Oral 350 / 350 120 / 120 Anesthesia Amount 1200 / 1200 Output: Estimated Blood Loss 200 / 200 Urine Amount (Catheter) 570 / 570 2099 / 2100 Indwelling Urethral Catheter 2099 Straight 570 / 570 Wound Drainage 60 / 60 # 1 Left Neck TERRI Drain 60 60 Other: # Voids 1 Date of Last Bowel Movement 03/13/18 # Bowel Movements 0 Narrative: GENERAL: NAD, A&Ox3 HEAD: Normocephalic. NECK: Supple, trachea midline. No lymphadenopathy. Left neck is bandaged with drain in place. EYES: No scleral icterus. No injection or drainage. CARDIOVASCULAR: Regular rate and rhythm without murmurs, gallops, or rubs. RESPIRATORY: Breath sounds equal bilaterally. No accessory muscle use. GASTROINTESTINAL: Abdomen soft, non-tender, nondistended. MUSCULOSKELETAL: No cyanosis, or edema. SKIN: Warm and dry. NEURO: No focal neurological deficits. - Urinary Catheter Management Straight Cath placed during this visit: yes, but has since been removed by the nurse Reason for continuing: Not indwelling catheter Insertion date: 03/14/18 Insertion time: 17:30 Removal date: 03/14/18 Removal time: 17:45 Indwelling Urethral Catheter Cath placed during this visit: yes Reason for continuing: Acute urinary retention Insertion date: 03/14/18 Insertion time: 22:05 Results - Labs CBC & Chem 7: 03/15/18 06:05 03/15/18 06:05 Laboratory Results - last 24 hr 03/14/18 03/15/18 03/15/18 19:22 06:05 06:05 WBC 8.1 RBC 4.28 L Hgb 13.6 Hct 40.1 MCV 93.7 MCH 31.9 MCHC 34.1 RDW 13.4 Plt Count 152 MPV 8.4 Neut % (Auto) 69.0 Lymph % (Auto) 20.5 [place] % (Auto) 8.0 Eos % (Auto) 2.0 Baso % (Auto) 0.5 Neut # (Auto) 5.6 Lymph # (Auto) 1.7 [place] # (Auto) 0.6 Eos # (Auto) 0.2 Baso # (Auto) 0.0 WBC Differential . Differential Comment Auto diff final Sodium 142 Potassium 3.9 Chloride 110 H Carbon Dioxide 23.6 Anion Gap 8 BUN 11 Creatinine 0.96 Estimated GFR 79 L POC Glucose 86 Random Glucose 85 Calcium 7.8 L Assessment and Plan - Assessment (1) Acute ischemic left MCA stroke Code(s): I63.512 - Cerebral infarction due to unspecified occlusion or stenosis of left middle cerebral artery Status: Acute (2) Tobacco use Code(s): Z72.0 - Tobacco use Status: Chronic (3) ESTELA (acute kidney injury) Code(s): N17.9 - Acute kidney failure, unspecified Status: Acute (4) HTN (hypertension) Code(s): I10 - Essential (primary) hypertension Status: Acute - Plan 62-year-old male admitted secondary to acute CVA secondary to carotid stenosis. Now status post left endarterectomy. Severe left internal carotid stenosis status post left endarterectomy Vascular surgeon following Continued to monitor Management of wound per vascular surgery Continue pain treatments Urinary retention Chronic BPH Continue Flomax Continue indwelling urinary catheter Void trial in 1-2 days CVA/TIA, subacute stroke in the left hemisphere Continue aspirin, Plavix and statin Continue PT/OT/ST Neurology following Nicotine dependence Patient counseled to quit Hypertension Likely reactive As needed clonidine Ativan for anxiety Continue pain treatments Acute Kidney Injury Improved Continue to monitor renal function Anxiety Ativan as needed DVT prophylaxis Heparin Discharge planning Void trial pending Surgical clearance will be needed prior to discharge
--- NOTE | 2018-03-15 10:25 | P.PNVS ---
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 The patient states that he could not control it and became dystaxic. The patient states that in the past month, he had several episodes where he lost partial vision in the left eye where he saw a curtain come down and then it would improve. This is classic presentation of amaurosis fugax. In addition, the patient states that in the past few months, he has had weakness in the right hand and weakness in the right arm with dystaxia that would come and go and he attributed this to maybe a carpal tunnel syndrome while working. Finally, the patient showed up here in the hospital. He was worked up, found to have a very tight about 80% to 90% left internal carotid artery stenosis by MRA and a tiny possibly old focus of parietal ischemic stroke on the left. Patient with clear symptoms of left hemispheric symptoms and left internal carotid artery stenosis. The patient will be scheduled for left carotid endarterectomy tomorrow. I reviewed the EKG and cardiac echo and I believe based on the nature of his findings and tight carotid stenosis patient is a moderate cardiovascular risk for surgery but any further delays are unwarranted. 03/15/2018 Patient status post left carotid endarterectomy As noted in operative report patient had very tight stenosis of the internal carotid artery but also a dissection of the distal common carotid artery with an elevated soft plaque. Patient is awake alert oriented incision is clean and dry He is neurologically intact Plan DC TERRI Leave wound open to air May shower tomorrow get incision wet Control hypertension May DC patient today from my point Follow-up with my office about 2-3 weeks Patient cleared for discharge from my point Objective Vital Signs / I&O: Vital Signs 03/14/18 13:15 03/14/18 13:30 03/14/18 13:45 Temperature 97.6 F Pulse Rate 76 67 67 Respiratory Rate 12 12 12 Blood Pressure 119/71 118/62 125/67 Pulse Oximetry 100 100 100 03/14/18 14:00 03/14/18 14:15 03/14/18 14:30 Temperature Pulse Rate 65 73 67 Respiratory Rate 13 12 12 Blood Pressure 120/66 120/64 Pulse Oximetry 100 100 100 03/14/18 14:41 03/14/18 14:52 03/14/18 15:00 Temperature 97.3 F L Pulse Rate 76 60 61 Respiratory Rate 15 14 15 Blood Pressure Pulse Oximetry 100 100 03/14/18 15:14 03/14/18 16:00 03/14/18 17:00 Temperature 97.8 F Pulse Rate 59 L 80 Respiratory Rate 14 12 15 Blood Pressure Pulse Oximetry 100 100 03/14/18 18:00 03/14/18 18:06 03/14/18 19:00 Temperature Pulse Rate 67 59 L Respiratory Rate 12 14 14 Blood Pressure Pulse Oximetry 100 100 03/14/18 20:00 03/14/18 21:00 03/14/18 22:00 Temperature 97.9 F Pulse Rate 73 80 76 Respiratory Rate 17 14 15 Blood Pressure Pulse Oximetry 100 100 100 03/14/18 23:00 03/15/18 00:00 03/15/18 01:00 Temperature Pulse Rate 65 63 58 L Respiratory Rate 14 18 12 Blood Pressure Pulse Oximetry 100 99 100 03/15/18 02:00 03/15/18 03:00 03/15/18 04:00 Temperature Pulse Rate 67 59 L 62 Respiratory Rate 12 16 14 Blood Pressure Pulse Oximetry 100 100 100 03/15/18 05:00 03/15/18 06:00 03/15/18 07:00 Temperature Pulse Rate 61 59 L 62 Respiratory Rate 15 23 16 Blood Pressure Pulse Oximetry 100 100 100 03/15/18 07:41 03/15/18 08:00 03/15/18 09:00 Temperature 98 F Pulse Rate 63 59 L Respiratory Rate 12 12 Blood Pressure Pulse Oximetry 100 94 L 95 Intake & Output 03/14/18 03/15/18 03/15/18 18:59 06:59 18:59 Intake Total 2550 / 2550 1120 / 1120 Output Total 790 / 790 2160 / 2160 Balance 1760 / 1760 -1040 / -1040 Weight 75.828 kg Intake: IV 1000 / 1000 1000 / 1000 NS Inj 1,000 ML @ 60 mls/hr IV. 1000 / 1000 1000 / 1000 CONT .[id number] [facility] Rx#:[id number] Oral 350 / 350 120 / 120 Anesthesia Amount 1200 / 1200 Output: Estimated Blood Loss 200 / 200 Urine Amount (Catheter) 570 / 570 2099 Indwelling Urethral Catheter 2099 Straight 570 / 570 Wound Drainage 20 / 20 60 / 60 # 1 Left Neck TERRI Drain Other: # Voids 1 Date of Last Bowel Movement 03/13/18 # Bowel Movements 0 Laboratory Results - last 24 hr 03/14/18 03/15/18 03/15/18 19:22 06:05 06:05 WBC 8.1 RBC 4.28 L Hgb 13.6 Hct 40.1 MCV 93.7 MCH 31.9 MCHC 34.1 RDW 13.4 Plt Count 152 MPV 8.4 Neut % (Auto) 69.0 Lymph % (Auto) 20.5 [place] % (Auto) 8.0 Eos % (Auto) 2.0 Baso % (Auto) 0.5 Neut # (Auto) 5.6 Lymph # (Auto) 1.7 [place] # (Auto) 0.6 Eos # (Auto) 0.2 Baso # (Auto) 0.0 WBC Differential . Differential Comment Auto diff final Sodium 142 Potassium 3.9 Chloride 110 H Carbon Dioxide 23.6 Anion Gap 8 BUN 11 Creatinine 0.96 Estimated GFR 79 L POC Glucose 86 Random Glucose 85 Calcium 7.8 L
[2018-03-15] MEDS: Sodium Chloride 0.9% 2 ML Flush BID IV.FLUSH SCH ×2 (10:56→20:22)
[2018-03-15] MEDS: Lisinopril 10 MG Tablet PO SCH (11:21)
[2018-03-15] MEDS: Sod Chloride 0.9% Inj 1,000 ML IV.CONT SCH (14:51)
[2018-03-15] MEDS: LORazepam 0.5 MG Tablet PO PRN (16:43)
[2018-03-15] MEDS: Morphine Inj 4 MG/ML Vial IV.PUSH PRN ×2 (18:05→23:17)
--- NOTE | 2018-03-15 19:26 | ECG ---
Date Performed: 03/15/2018 Time Performed: 16:53:30 PTAGE: 62 years EKG: Baseline artifact present Probable Sinus rhythm with short IN interval IV conduction defect Abnormal ECG Probably No significant change from prior electrocardiogram. DOCTOR: Cordell Willard Interpretating Date/Time 03/15/2018 19:26:34
[2018-03-16] MEDS: Heparin - SQ 10,000 UNITS/ML Vial SQ SCH (02:00)
[2018-03-16] MEDS: prednisoLONE Acetate 1% Opth Susp 5 ML Bottle LEFT EYE SCH ×2 (02:00→08:28)
[2018-03-16] MEDS: Morphine Inj 4 MG/ML Vial IV.PUSH PRN ×2 (03:38→08:34)
[2018-03-16] MEDS: Sod Chloride 0.9% Inj 1,000 ML IV.CONT SCH (07:14)
--- NOTE | 2018-03-16 08:26 | P.PN ---
Subjective Interval history: Patient doing well. Reports that he is tolerating p.o., voiding/stooling well. Patient reports that he is ready to be discharged. Physical Exam Vital signs: Vital Signs 03/15/18 09:00 03/15/18 10:00 03/15/18 10:47 Temperature Pulse Rate 59 L 61 76 Respiratory Rate 12 20 Blood Pressure 155/73 H Pulse Oximetry 95 96 03/15/18 11:00 03/15/18 11:47 03/15/18 12:00 Temperature 97.7 F Pulse Rate 79 70 65 Respiratory Rate 20 18 20 Blood Pressure 145/72 H 123/68 Pulse Oximetry 95 96 98 03/15/18 13:00 03/15/18 14:00 03/15/18 15:00 Temperature Pulse Rate 69 66 69 Respiratory Rate 16 16 15 Blood Pressure 171/84 H 146/82 H 146/79 H Pulse Oximetry 98 96 98 03/15/18 16:00 03/15/18 17:00 03/15/18 18:00 Temperature 98 F Pulse Rate 69 69 68 Respiratory Rate 14 14 19 Blood Pressure 135/78 142/74 H 162/85 H Pulse Oximetry 96 95 97 03/15/18 19:00 03/15/18 20:00 03/15/18 21:00 Temperature 97.7 F Pulse Rate 70 71 66 Respiratory Rate 13 21 28 H Blood Pressure 135/62 140/80 137/76 Pulse Oximetry 94 L 95 95 03/15/18 21:42 03/15/18 22:00 03/15/18 23:00 Temperature Pulse Rate 63 64 Respiratory Rate 22 13 12 Blood Pressure 105/61 143/78 H Pulse Oximetry 95 96 03/16/18 00:00 03/16/18 01:59 03/16/18 04:00 Temperature 98.3 F Pulse Rate 62 78 Respiratory Rate 22 22 18 Blood Pressure 110/66 127/69 Pulse Oximetry 95 95 03/16/18 07:00 Temperature Pulse Rate Respiratory Rate 12 Blood Pressure Pulse Oximetry Intake & Output 03/15/18 03/16/18 03/16/18 18:59 06:59 18:59 Intake Total 1200 / 1200 1000 / 1000 Output Total 3210 / 3210 2400 / 2400 Balance -2009 / -2009 -1399 / -1400 Weight 63.5 kg Intake: IV 1000 / 1000 NS Inj 1,000 ML @ 60 mls/hr IV. 1000 / 1000 CONT .[id number] [facility] Rx#:[id number] Oral 1200 / 1200 Output: Urine 1200 / 1200 Urine Amount (Catheter) 3200 / 3200 1200 / 1200 Indwelling Urethral Catheter 3200 / 3200 1200 / 1200 Wound Drainage # 1 Left Neck TERRI Drain Narrative: GENERAL: NAD, A&Ox3 HEAD: Normocephalic. NECK: Supple, trachea midline. No lymphadenopathy. Left neck dressing C/D/I EYES: No scleral icterus. No injection or drainage. CARDIOVASCULAR: Regular rate and rhythm without murmurs, gallops, or rubs. RESPIRATORY: Breath sounds equal bilaterally. No accessory muscle use. GASTROINTESTINAL: Abdomen soft, non-tender, nondistended. MUSCULOSKELETAL: No cyanosis, or edema. SKIN: Warm and dry. NEURO: No focal neurological deficits. - Urinary Catheter Management Straight Cath placed during this visit: yes, but has since been removed by the nurse Reason for continuing: Not indwelling catheter Insertion date: 03/14/18 Insertion time: 17:30 Removal date: 03/14/18 Removal time: 17:45 Indwelling Urethral Catheter Cath placed during this visit: yes Reason for continuing: Acute urinary retention Insertion date: 03/14/18 Insertion time: 22:05 Results - Labs CBC & Chem 7: 03/16/18 09:46 03/16/18 09:46 Assessment and Plan - Assessment (1) Acute ischemic left MCA stroke Code(s): I63.512 - Cerebral infarction due to unspecified occlusion or stenosis of left middle cerebral artery Status: Acute (2) Tobacco use Code(s): Z72.0 - Tobacco use Status: Chronic (3) ESTELA (acute kidney injury) Code(s): N17.9 - Acute kidney failure, unspecified Status: Acute (4) HTN (hypertension) Code(s): I10 - Essential (primary) hypertension Status: Acute - Plan [id number] CM admitted secondary to acute CVA secondary to carotid stenosis, Now status post left endarterectomy on 03/14, POD#2 1. Severe left internal carotid stenosis status post left endarterectomy Vascular surgeon following, cleared for discharge per their Ish, follow-up in [address] Contreras 2. Urinary retention/Chronic BPH Continue Flomax Continue indwelling urinary catheter Void trial in 1-2 days 3. CVA/TIA, subacute stroke in the left hemisphere Continue aspirin, Plavix and statin Continue PT/OT/ST Neurology following, per Dr. [place] cleared for discharge, advised to only have to continue aspirin and stop the Plavix 3. Nicotine dependence Patient counseled to quit 4. Hypertension, stable Cont. Clonidine PRN 5. Anxiety Cont. Ativan PRN 6. DVT prophylaxis: Heparin 7. Dispo: Stable for discharge per neuro and vascular surgery, follow-up to Dr. Contreras in 2 weeks. Code Status: full Discussed Condition With: patient, RN
[2018-03-16] MEDS: Senna/Docusate Sodium 8.6/50 MG Tablet PO SCH (08:27)
[2018-03-16] MEDS: Lisinopril 10 MG Tablet PO SCH (08:27)
[2018-03-16] MEDS: Sodium Chloride 0.9% 2 ML Flush BID IV.FLUSH SCH (08:28)
[2018-03-16] MEDS: Aspirin 325 MG Tablet PO SCH (08:28)
[2018-03-16 08:29] VITALS: RESP 20
[2018-03-16 10:56] LABS: Baso % (Auto) 0.3 % (0.0-2.0); Eos # (Auto) 0.2 th/mm3 (0.0-0.4); Eos % (Auto) 2.4 % (0.0-4.0); Hematocrit 40.6 % (39.0-51.0); Hemoglobin 13.7 gm/dL (13.0-17.0); Lymph % (Auto) 14.5 % (9.0-44.0); Mean Corpuscular HGB Conc 33.8 % (32.0-36.0); Mean Corpuscular Volume 94.8 fL (80.0-100.0); Mono # (Auto) 0.6 th/mm3 (0.0-0.9); Mono % (Auto) 8.5 % (0.0-8.0); Neut # (Auto) 4.9 th/mm3 (1.8-7.7); Neut % (Auto) 74.3 % (16.0-70.0); Platelet Count 140 th/mm3 (150-450); Red Blood Count 4.28 mil/mm3 (4.50-5.90); Red Cell Distribution Width 13.5 % (11.6-17.2); White Blood Count 6.6 th/mm3 (4.0-11.0)
[2018-03-16 11:12] LABS: Alanine Aminotransferase 15 U/L (12-78); Anion Gap 7 meq/L (5-15); Aspartate Aminotransferase 14 U/L (15-37); Blood Urea Nitrogen 9 mg/dL (7-18); Calcium 8.2 mg/dL (8.5-10.1); Chloride 110 meq/L (98-107); Glomerular Filtration Rate 84 mL/min (>89); Glucose,Random 98 mg/dL (74-106); Potassium 4.1 meq/L (3.5-5.1); Sodium 142 meq/L (136-145)
[2018-03-16 11:14] LABS: Alkaline Phosphatase 60 U/L (45-117)
[2018-03-16 11:22] VITALS: BP 120/72; TEMP 98.3; O2SAT 96
--- NOTE | 2018-03-16 12:00 | P.DS ---
Date of admission: 03/11/18 16:10 Primary care physician: UNKNOWN Brief History from admission: This is a 62 y/o CM with PMHx Anxiety here for evaluation of right hand numbness x1 day. Symptoms were associated with weakness, and patient reported having a similar episode that occurred at work one wk prior that lasted a few minutes and completely resolved spontaneously. Patient is a smoker, he admitted that he does not see a PCP regularly, but does denied previous history of DM and HTN. No previous history of CVA, [place] or CAD. Of note, patient complaining of intermittent left eye blurriness s/p skin therapist evaluation last wk who ruled out retinal detachment and other pathologies, patient was Rx Medrol pack and steroid eyedrops. DS: Diagnosis - Discharge Diagnosis (1) Acute ischemic left MCA stroke Status: Acute (2) Tobacco use Status: Chronic (3) ESTELA (acute kidney injury) Status: Acute (4) HTN (hypertension) Status: Chronic DS: Medications - Discharge Medications Prescriptions: aspirin 325 mg PO DAILY #30 tab lisinopril 10 mg PO DAILY #30 tab nifedipine 60 mg PO DAILY #30 tab ondansetron [Zofran ODT] 4 mg PO Q6-8H PRN #12 tab PRN Reason: Nausea pravastatin 20 mg PO DAILY #30 tab DS: Summary Hospital Course: This is a 62-year-old CM admitted due to an acute CVA secondary to carotid stenosis. Patient underwent left endarterectomy on 03/14 with postop course uncomplicated. Patient was managed by Dr. Contreras, Vascular surgery, and was cleared for discharge per their recommendations with follow-up in 2 weeks. Patient also had a Subacute stroke in the left hemisphere, was placed on aspirin and statin, and managed by neuro, Dr. Toledo. Patient did well with PT/OT/ST and had no deficits. On the day of D/C, patient was cleared for discharge by Neuro and advised to only continue aspirin and stop the Plavix. Patient was discharged in stable condition. - Time Spent with Patient Total time spent providing and/or coordinating discharge services: Greater than 30 minutes - Quality: AMI Clinical Trial Participant: No - Quality: VTE Deep Vein Thrombosis/Pulmonary Embolism Present on Admission: No Exam Vital signs: Vital Signs 03/15/18 13:00 03/15/18 14:00 03/15/18 15:00 Temperature Pulse Rate 69 66 69 Respiratory Rate 16 16 15 Blood Pressure 171/84 H 146/82 H 146/79 H Pulse Oximetry 98 96 98 03/15/18 16:00 03/15/18 17:00 03/15/18 18:00 Temperature 98 F Pulse Rate 69 69 68 Respiratory Rate 14 14 19 Blood Pressure 135/78 142/74 H 162/85 H Pulse Oximetry 96 95 97 03/15/18 19:00 03/15/18 20:00 03/15/18 21:00 Temperature 97.7 F Pulse Rate 70 71 66 Respiratory Rate 13 21 28 H Blood Pressure 135/62 140/80 137/76 Pulse Oximetry 94 L 95 95 03/15/18 21:42 03/15/18 22:00 03/15/18 23:00 Temperature Pulse Rate 63 64 Respiratory Rate 22 13 12 Blood Pressure 105/61 143/78 H Pulse Oximetry 95 96 03/16/18 00:00 03/16/18 01:59 03/16/18 04:00 Temperature 98.3 F Pulse Rate 62 78 Respiratory Rate 22 22 18 Blood Pressure 110/66 127/69 Pulse Oximetry 95 95 03/16/18 07:00 03/16/18 08:00 03/16/18 09:14 Temperature 98.6 F Pulse Rate 71 72 Respiratory Rate 12 20 Blood Pressure 112/63 Pulse Oximetry 95 03/16/18 11:21 Temperature 98.3 F Pulse Rate 75 Respiratory Rate 20 Blood Pressure 120/72 Pulse Oximetry 96 Intake & Output 03/15/18 03/16/18 03/16/18 18:59 06:59 18:59 Intake Total 1200 / 1200 1000 / 1000 Output Total 3210 / 3210 2400 / 2400 1300 / 1300 Balance -2009 / -2009 -1399 / -1400 -1300 / -1300 Weight 63.5 kg Intake: IV 1000 / 1000 NS Inj 1,000 ML @ 60 mls/hr IV. 1000 / 1000 CONT .[id number] [facility] Rx#:[id number] Oral 1200 / 1200 Output: Urine 1200 / 1200 Urine Amount (Catheter) 3200 / 3200 1200 / 1200 1300 / 1300 Indwelling Urethral Catheter 3200 / 3200 1200 / 1200 1300 / 1300 Wound Drainage # 1 Left Neck TERRI Drain Narrative: GENERAL: NAD, A&Ox3 HEAD: Normocephalic. NECK: Supple, trachea midline. No lymphadenopathy. Left neck dressing C/D/I EYES: No scleral icterus. No injection or drainage. CARDIOVASCULAR: Regular rate and rhythm without murmurs, gallops, or rubs. RESPIRATORY: Breath sounds equal bilaterally. No accessory muscle use. GASTROINTESTINAL: Abdomen soft, non-tender, nondistended. MUSCULOSKELETAL: No cyanosis, or edema. SKIN: Warm and dry. NEURO: No focal neurological deficits. Results Procedures completed during hospitalization: n/a Pending studies at discharge: Pending at discharge 03/14/18 07:49 Surgical [PTH] Routine Labs on day of discharge: Labs from last 24 hours 03/16/18 03/16/18 09:46 09:46 WBC 6.6 RBC 4.28 L Hgb 13.7 Hct 40.6 MCV 94.8 MCH 32.0 MCHC 33.8 RDW 13.5 Plt Count 140 L MPV 9.0 Neut % (Auto) 74.3 H Lymph % (Auto) 14.5 [place] % (Auto) 8.5 H Eos % (Auto) 2.4 Baso % (Auto) 0.3 Neut # (Auto) 4.9 Lymph # (Auto) 1.0 [place] # (Auto) 0.6 Eos # (Auto) 0.2 Baso # (Auto) 0.0 WBC Differential . Differential Comment Auto diff final Sodium 142 Potassium 4.1 Chloride 110 H Carbon Dioxide 25.0 Anion Gap 7 BUN 9 Creatinine 0.91 Estimated GFR 84 L Random Glucose 98 Calcium 8.2 L Total Bilirubin 0.5 AST 14 L ALT 15 Alkaline Phosphatase 60 Troponin I Less than 0.02 L Total Protein 6.0 L Albumin 3.0 L - Impressions ITS Impressions Neck MRA 03/11/18 00:00 CONCLUSION: 1. Hemodynamically significant stenosis at the left proximal internal carotid artery. 2. No evidence for hemodynamically significant stenosis on the right. Percent stenosis is calculated using the diameter of the stenotic region over the diameter of the normal distal internal carotid artery Chest X-Ray 03/11/18 08:12 CONCLUSION: Negative examination. Head CT 03/11/18 08:12 CONCLUSION: 1. Area of abnormal density involving the left parietal lobe. Differential diagnostic considerations would include infarction versus mass. MRI of the brain with gadolinium is suggested to further assess . Head MRI 03/11/18 08:49 CONCLUSION: Patchy evolving subacute strokes in the left hemisphere as described. Head MRA 03/11/18 12:54 CONCLUSION: 1. Negative MRA [place] ([place]) non contrast. Discharge Plan - Discharge Disposition Patient Disposition: 01 Discharge Home - Discharge Condition Condition: Good - Discharge Order Discharge Orders: Discharge Order (Routine); Ordered 03/16/18 Ordered By: Safia Chaudhary - Physicians Team Primary Care Provider: UNKNOWN, Attending Provider: Safia Chaudhary Other Providers: Emiliano Toledo MD ; Terence Woo MD
[2018-03-16 12:34] VITALS: PULSE 81
== END 2018-03-16 13:26 | disposition home or self-care (01) ==
LOC: NEPC 07:46 → NEDA 07:46 → NEPHCDU 15:30 → N05 03-12 17:40 → N03 03-14 13:32 → N05 03-16 02:51
PROVIDERS: ADMIT Family Medicine; ATTEND Family Medicine